=== PATIENT | female | born 1970 | race Caucasian/White ===

== ENCOUNTER 2017-01-30 01:45 | Emergency (ER) | payer MEDICAID, OTHER ==
[2017-01-30 01:54] VITALS: O2SAT 98; BMI 24.4
--- NOTE | 2017-01-30 03:07 | ED PDOC ---
Arrival/HPI - General Chief Complaint: Abdominal Pain Time Seen by Provider: 01/30/17 01:54 Historian: Patient - History of Present Illness Narrative History of Present Illness (Text): 01/30/17 03:02 Gladys Rolon is a 46 year old female, with a history of anemia,esophageal stricture, uterine fibroids, presents to the emergency department for evaluation of 3 day duration of intermittent abdominal discomfort.Pt. states she normally blends her food and is careful what she eats.No symptoms presently.Pt.states she has chronic hx. of similar symptoms previuosly evaluated and given GI referral.States needs fish drier who accepts her insurance.Denies any fever, chills, headache, dizziness, chest pain, nausea, vomiting, diarrhea, urinary symptoms, or any other complaints at this time. Time/Duration: < week (3 days ) Symptom Course: Improving Severity Level: Mild Activities at Onset: Light Past Medical History - Provider Review Nursing Documentation Reviewed: Yes - Past History Past History: No Previous - Infectious Disease Hx of Infectious Diseases: None - Tetanus Immunization Tetanus Immunization: Unknown - Cardiac Hx Cardiac Disorders: No - Pulmonary Hx Asthma: Yes Hx Bronchitis: No - Neurological Hx Neurological Disorder: No - HEENT Hx HEENT Disorder: No - Renal Hx Renal Disorder: No - Endocrine/Metabolic Hx Endocrine Disorders: No - Hematological/Oncological Hx Anemia: Yes - Integumentary Hx Dermatological Disorder: No - Musculoskeletal/Rheumatological Hx Musculoskeletal Disorders: No Hx Falls: No - Gastrointestinal Hx Gastrointestinal Disorders: Yes (ESOPHAGEAL STRICTURE-WITH DILATATION UMDN[place]) Hx Gastroesophageal Reflux: Yes - Genitourinary/Gynecological Hx Genitourinary Disorders: Yes (fibroids,C SECTION X 3) - Psychiatric Hx Depression: No Hx Substance Use: No - Surgical History Hx Section: Yes (x3) - Anesthesia Hx Anesthesia: Yes Hx Anesthesia Reactions: No Hx Malignant Hyperthermia: No - Suicidal Assessment Feels Threatened In Home Enviroment: No Family/Social History - Physician Review Nursing Documentation Reviewed: Yes Family/Social History: No Known Family HX Smoking Status: Never Smoked Hx Alcohol Use: No Hx Substance Use: No Hx Substance Use Treatment: No Allergies/Home Meds Allergies/Adverse Reactions: Allergies No Known Allergies Allergy (Verified 01/26/15 23:10) Home Medications: Home Meds Medication Instructions Recorded Confirmed Albuterol 0.083% [Albuterol 0.083% 2.5 mg IH BID PRN 02/25/15 02/25/15 Inhal Jess (2.5 mg/3 ml) UD] Ascorbic Acid/Bioflavonoid 1 tab PO DAILY 02/25/15 02/25/15 [Vitamin C] Cyanocobalamin [Vitamin B12 1000 1,000 mcg PO DAILY 02/25/15 02/25/15 mcg Tab] Cyanocobalamin [Vitamin B12 1000 1,000 mcg IM Q30D 02/25/15 02/25/15 mcg/ml Inj] Fluticasone/Salmeterol [Advair Hfa 1 puff IN TID PRN 02/25/15 02/25/15 230/21] Pantoprazole Sodium [Protonix] 40 mg PO BID 02/25/15 02/25/15 Review of Systems - Physician Review All systems were reviewed & negative as marked: Yes - Review of Systems Constitutional: Normal. absent: Fatigue, Fevers ENT: Other (difficulty swallowing solids ) Respiratory: Normal. absent: SOB, Sputum Gastrointestinal: Abdominal Pain. absent: Diarrhea, Nausea, Vomiting Genitourinary Female: Normal. absent: Dysuria Musculoskeletal: Normal Neurological: Normal. absent: Headache, Dizziness Psychiatric: Normal Physical Exam Vital Signs Reviewed: Yes Vital Signs Temp Pulse Resp BP Pulse Ox 01/30/17 05:30 97.9 F 82 18 128/80 98 01/30/17 01:52 98.0 F 89 16 134/87 98 Temperature: Afebrile Blood Pressure: Normal Pulse: Regular Respiratory Rate: Normal Appearance: Positive for: Well-Appearing, Non-Toxic, Comfortable Pain Distress: None Mental Status: Positive for: Alert and Oriented X 3 - Systems Exam Head: Present: Atraumatic, Normocephalic Pupils: Present: PERRL Extroacular Muscles: Present: EOMI Conjunctiva: Present: Normal Mouth: Present: Moist Mucous Membranes Neck: Present: Normal Range of Motion Respiratory/Chest: Present: Clear to Auscultation, Good Air Exchange. No: Respiratory Distress, Accessory Muscle Use Cardiovascular: Present: Regular Rate and Rhythm, Normal S1, S2. No: Murmurs Abdomen: Present: Normal Bowel Sounds. No: Tenderness, Distention, Peritoneal Signs Upper Extremity: Present: Normal Inspection. No: Cyanosis, Edema Lower Extremity: Present: Normal Inspection. No: Edema Neurological: Present: GCS=15, CN II-XII Intact, Speech Normal, Motor Func Grossly Intact, Normal Sensory Function Skin: Present: Warm, Dry, Normal Color. No: Rashes Psychiatric: Present: Alert, Oriented x 3, Normal Insight, Normal Concentration Medical Decision Making ED Course and Treatment: 01/30/17 03:09 Impression: A 46 year old female who presents to the emergency department complaining of 3 day duration of occassional abdominal discomfort. Plan: -- Labs -- Pepcid -- IV Fluids -- Reassess and disposition Progress Notes: - Lab Interpretations Lab Results: 01/30/17 03:15 01/30/17 04:00 Lab Results 01/30/17 04:00: Sodium 139, Potassium 3.8, Chloride 106, Carbon Dioxide 26, Anion Gap 11, BUN 7, Creatinine 0.7, Est GFR ( Amer) > 60, Est GFR (Non- Af Amer) > 60, Random Glucose 81, Calcium 9.1, Total Bilirubin 0.4, AST 25, ALT 27, Alkaline Phosphatase 67, Total Protein 7.5, Albumin 3.8, Globulin 3.7, Albumin/Globulin Ratio 1.0 L, Lipase 149 01/30/17 03:15: WBC 8.1, RBC 4.68, Hgb 13.6, Hct 40.7, MCV 87.0, MCH 29.1, MCHC 33.4, RDW 13.8, Plt Count 272, MPV 9.7 - Medication Orders Current Medication Orders: Discontinued Medications Famotidine (Pepcid) 20 mg IVP STAT STA Stop: 01/30/17 02:57 Last Admin: 01/30/17 03:19 Dose: 20 mg Sodium Chloride (Sodium Chloride 0.9%) 1,000 mls @ 100 mls/hr IV .Q10H [facility] Last Admin: 01/30/17 05:57 Dose: 100 mls/hr - Scribe Statement The provider has reviewed the documentation as recorded by the Germán Bacon Provider Scribe Attestation: All medical record entries made by the Scribe were at my direction and personally dictated by me. I have reviewed the chart and agree that the record accurately reflects my personal performance of the history, physical exam, medical decision making, and the department course for this patient. I have also personally directed, reviewed, and agree with the discharge instructions and disposition. Disposition/Present on Arrival - Present on Arrival Any Indicators Present on Arrival: No History of DVT/PE: No History of Uncontrolled Diabetes: No Urinary Catheter: No History of Decub. Ulcer: No History Surgical Site Infection Following: None - Disposition Have Diagnosis and Disposition been Completed?: Yes Diagnosis: Gastritis Disposition: HOME/ ROUTINE Disposition Time: 06:20 Patient Plan: Discharge Condition: STABLE Discharge Instructions (ExitCare): Gastritis (ED), Dysphagia (ED) Additional Instructions: Medication as prescribed/drink liquids/soft foodstuffs/follow up with the fish drier this week /any worsening symptoms return to the emergency room Prescriptions: Famotidine 20 mg PO BID #24 tablet Referrals: Rico Wilson MD [Medical Doctor] - Follow up with primary
[2017-01-30] MEDS: Sodium Chloride 0.9% 1,000 ML IV SCH ×2 (03:19→05:57)
[2017-01-30 03:49] LABS: HEMATOCRIT 40.7 % (36.0-48.0); MEAN CORPUSCULAR HEMOGLOBIN 29.1 pg (25.0-35.0); MEAN CORPUSCULAR HGB CONC 33.4 g/dl (31.0-37.0); MEAN PLATELET VOLUME 9.7 fl (7.0-11.0); RED CELL DISTRIBUTION WIDTH 13.8 % (11.5-14.5); WHITE BLOOD COUNT 8.1 10^3/ul (4.5-11.0)
[2017-01-30 05:20] LABS: ALKALINE PHOSPHATASE 67 U/L (38-133); ALT/SGPT 27 U/L (7-56); AST/SGOT 25 U/L (15-39); BILIRUBIN,TOTAL 0.4 mg/dL (0.2-1.3); BLOOD UREA NITROGEN 7 mg/dL (7-21); CALCIUM 9.1 mg/dL (8.4-10.5); CARBON DIOXIDE 26 mmol/L (21-33); CHLORIDE 106 mmol/L (98-107); GFR AFRICAN-AMERICAN > 60; GLUCOSE,RANDOM 81 mg/dL (70-110); LIPASE 149 U/L (23-300); POTASSIUM 3.8 mmol/L (3.6-5.0); SODIUM 139 mmol/L (132-148); TOTAL PROTEIN 7.5 g/dL (5.8-8.3)
[2017-01-30 06:03] VITALS: BP 128/80; PULSE 82; RESP 18; TEMP 97.9
== END 2017-01-30 06:34 | disposition home or self-care (01) ==
LOC: ED 01:45
DX: K29.70 Gastritis, unspecified, without bleeding (principal)
CPT/HCPCS: 80053; 83690; 85027; 96374; 99283; J7040

== ENCOUNTER 2017-02-05 02:42 | Emergency (ER) | payer MEDICAID ==
[2017-02-05 02:58] VITALS: BMI 18.1
--- NOTE | 2017-02-05 03:08 | ED PDOC ---
Arrival/HPI - General Time Seen by Provider: 02/05/17 02:54 Historian: Patient - History of Present Illness Narrative History of Present Illness (Text): 02/05/17 02:54 46 year old female, whose past medical history includes anemia, esophageal stricture, asthma, and uterine fibroids, who presents to the Emergency department with complaints of abdominal pain for last 10 days ago. Patient reports associated nausea, decreased appetite, shortness of breath, and acid reflux. Patient states she took Protonix at home, but denies any significant relief. The patient denies any chest pain, fever, vomiting, diarrhea, or any other complaints at this time. Time/Duration: > week (10 days ) Symptom Course: Unchanged Activities at Onset: Rest Context: Home Past Medical History - Provider Review Nursing Documentation Reviewed: Yes - Past History Past History: No Previous - Infectious Disease Hx of Infectious Diseases: None - Tetanus Immunization Tetanus Immunization: Unknown - Cardiac Hx Cardiac Disorders: No - Pulmonary Hx Asthma: Yes Hx Bronchitis: No - Neurological Hx Neurological Disorder: No - HEENT Hx HEENT Disorder: No - Renal Hx Renal Disorder: No - Endocrine/Metabolic Hx Endocrine Disorders: No - Hematological/Oncological Hx Anemia: Yes - Integumentary Hx Dermatological Disorder: No - Musculoskeletal/Rheumatological Hx Musculoskeletal Disorders: No Hx Falls: No - Gastrointestinal Hx Gastrointestinal Disorders: Yes (ESOPHAGEAL STRICTURE-WITH DILATATION UMDN[place]) Hx Gastroesophageal Reflux: Yes - Genitourinary/Gynecological Hx Genitourinary Disorders: Yes (fibroids,C SECTION X 3) - Psychiatric Hx Depression: No Hx Substance Use: No - Surgical History Hx Section: Yes (x3) - Anesthesia Hx Anesthesia: Yes Hx Anesthesia Reactions: No Hx Malignant Hyperthermia: No - Suicidal Assessment Feels Threatened In Home Enviroment: No Family/Social History - Physician Review Nursing Documentation Reviewed: Yes Family/Social History: Unknown Family HX Smoking Status: Never Smoked Hx Alcohol Use: No Hx Substance Use: No Hx Substance Use Treatment: No Allergies/Home Meds Allergies/Adverse Reactions: Allergies No Known Allergies Allergy (Verified 02/05/17 03:00) Home Medications: Home Meds Medication Instructions Recorded Confirmed Famotidine [Pepcid] 20 mg PO DAILY 02/05/17 02/05/17 Ibuprofen [Motrin] 600 mg PO Q6 PRN 02/05/17 02/05/17 Ranitidine HCl [Sunmark Acid 150 mg PO BID 02/05/17 02/05/17 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 absent: Fevers Respiratory: SOB. absent: Cough Cardiovascular: absent: Chest Pain Gastrointestinal: Abdominal Pain, Nausea, Appetite Changes. absent: Diarrhea, Vomiting Genitourinary Female: Normal. absent: Dysuria, Frequency, Hematuria, Urine Output Changes Musculoskeletal: Normal. absent: Back Pain, Neck Pain Neurological: Normal. absent: Headache, Dizziness Physical Exam Vital Signs Reviewed: Yes Vital Signs Temp Pulse Resp BP Pulse Ox 02/05/17 05:42 57 L 18 109/72 100 02/05/17 03:07 98.2 F 70 15 112/75 99 Temperature: Afebrile Blood Pressure: Normal Pulse: Regular Respiratory Rate: Normal Appearance: Positive for: Well-Appearing, Non-Toxic, Comfortable Pain Distress: None Mental Status: Positive for: Alert and Oriented X 3 - Systems Exam Head: Present: Atraumatic, Normocephalic Pupils: Present: PERRL Extroacular Muscles: Present: EOMI Conjunctiva: Present: Normal Mouth: Present: Moist Mucous Membranes Neck: Present: Normal Range of Motion Respiratory/Chest: Present: Clear to Auscultation, Good Air Exchange. No: Respiratory Distress, Accessory Muscle Use Cardiovascular: Present: Regular Rate and Rhythm, Normal S1, S2. No: Murmurs Abdomen: Present: Normal Bowel Sounds. No: Tenderness, Distention, Peritoneal Signs Back: Present: Normal Inspection Upper Extremity: Present: Normal Inspection. No: Cyanosis, Edema Lower Extremity: Present: Normal Inspection. No: Edema Neurological: Present: GCS=15, CN II-XII Intact, Speech Normal Skin: Present: Warm, Dry, Normal Color. No: Rashes Psychiatric: Present: Alert, Oriented x 3, Normal Insight, Normal Concentration Medical Decision Making ED Course and Treatment: 02/05/17 02:54 Impression: 46 year old woman with abdominal pain. Differential Diagnosis included but are not limited to: Plan: -- EKG -- Labs -- Protonix, IV fluids, Zofran -- UA -- Reassess and disposition Prior Visits: Notes and results from previous visits were reviewed. 01/30/17 patient presented to the Emergency department for abdominal pain, discharged home. Progress Notes: EKG: Ordered, reviewed, and independently interpreted the EKG. Rate : 56 BPM Rhythm : Sinus bradycardia Interpretation : No ST/T wave changes. Comparison : No acute changes from previous EKG for comparison 02/25/15. Re-evaluation Time: 06:38 Reassessment Condition: Re-examined, Improved - Lab Interpretations Lab Results: 02/05/17 03:20 02/05/17 03:20 Lab Results 02/05/17 03:20: Sodium 140, Potassium 3.5 L, Chloride 105, Carbon Dioxide 25, Anion Gap 14, BUN 11, Creatinine 0.9, Est GFR ( Amer) > 60, Est GFR (Non- Af Amer) > 60, Random Glucose 101, Calcium 9.7, Total Bilirubin 0.5, AST 25, ALT 20, Alkaline Phosphatase 63, Lactate Dehydrogenase 373, Total Creatine Kinase 56, Troponin I < 0.01, Total Protein 8.1, Albumin 4.3, Globulin 3.9, Albumin/Globulin Ratio 1.1, Amylase 124, Lipase 151 02/05/17 03:20: Urine Color Yellow, Urine Appearance Sl cloudy, Urine pH 6.0, Ur Specific [place] >= 1.030, Urine Protein 30 H, Urine Glucose (UA) Negative, Urine Ketones Trace H, Urine Blood Negative, Urine Nitrate Negative, Urine Bilirubin Negative, Urine Urobilinogen 1.0 H, Ur Leukocyte Esterase Negative, Urine RBC 0 - 2, Urine WBC 0 - 2, Ur Epithelial Cells 0 - 2 02/05/17 03:20: WBC 6.4 D, RBC 4.85, Hgb 14.1, Hct 41.6, MCV 85.8, MCH 29.1, MCHC 33.9, RDW 13.2, Plt Count 241, MPV 9.7, Gran % 59.0, Lymph % (Auto) 31.2, [place] % (Auto) 6.8 H, Eos % (Auto) 2.7, Baso % (Auto) 0.3, Gran # 3.76, Lymph # 2.0, [place] # 0.4, Eos # 0.2, Baso # 0.02 I have reviewed the lab results: Yes - EKG Interpretation Interpreted by ED Physician: Yes Type: 12 lead EKG - Medication Orders Current Medication Orders: Sodium Chloride (Sodium Chloride 0.9%) 1,000 mls @ 100 mls/hr IV .Q10H STA Stop: 02/05/17 13:08 Last Admin: 02/05/17 03:31 Dose: 100 mls/hr Discontinued Medications Ondansetron HCl (Zofran Inj) 4 mg IVP STAT STA Stop: 02/05/17 03:10 Last Admin: 02/05/17 03:31 Dose: 4 mg Pantoprazole Sodium (Protonix Inj) 40 mg IVP STAT STA Stop: 02/05/17 03:19 Last Admin: 02/05/17 03:31 Dose: 40 mg - Scribe Statement The provider has reviewed the documentation as recorded by the Germán Saenz training under Princess Guerra. Provider Scribe Attestation: All medical record entries made by the Scribe were at my direction and personally dictated by me. I have reviewed the chart and agree that the record accurately reflects my personal performance of the history, physical exam, medical decision making, and the department course for this patient. I have also personally directed, reviewed, and agree with the discharge instructions and disposition. Disposition/Present on Arrival - Present on Arrival Any Indicators Present on Arrival: No History of DVT/PE: No History of Uncontrolled Diabetes: No Urinary Catheter: No History Surgical Site Infection Following: None - Disposition Have Diagnosis and Disposition been Completed?: Yes Diagnosis: Gastroesophageal reflux disease Disposition: HOME/ ROUTINE Disposition Time: 06:38 Condition: GOOD Discharge Instructions (ExitCare): Gastroesophageal Reflux Disease (ED) Prescriptions: Pantoprazole Sodium [Protonix] 40 mg PO DAILY #14 ect
[2017-02-05 03:09] VITALS: TEMP 98.2
[2017-02-05] MEDS ORDERED: Pantoprazole 40 MG in Sodium Chloride 0.9% 100 ML IV STA (03:09)
[2017-02-05] MEDS ORDERED: Sodium Chloride 0.9% 1,000 ML IV STA (03:09)
[2017-02-05 03:31] LABS: ADD MANUAL DIFF? NO
[2017-02-05 03:40] LABS: BASO # 0.02 K/mm3 (0.0-2.0); BASO % 0.3 % (0.0-3.0); EOS # 0.2 (0.0-0.7); EOS % 2.7 % (1.5-5.0); GRAN # 3.76 (1.4-6.5); HEMATOCRIT 41.6 % (36.0-48.0); LYMPH % 31.2 % (22.0-35.0); MEAN CELL VOLUME 85.8 fL (80.0-105.0); MEAN CORPUSCULAR HEMOGLOBIN 29.1 pg (25.0-35.0); MEAN CORPUSCULAR HGB CONC 33.9 g/dl (31.0-37.0); MEAN PLATELET VOLUME 9.7 fl (7.0-11.0); MONO # 0.4 (0.1-0.6); MONO % 6.8 % (1.0-6.0); PLATELET COUNT 241 10^3/uL (120.0-450.0); RED CELL DISTRIBUTION WIDTH 13.2 % (11.5-14.5); WHITE BLOOD COUNT 6.4 10^3/ul (4.5-11.0)
[2017-02-05 03:44] LABS: URINE BILIRUBIN NEGATIVE (NEGATIVE); URINE BLOOD NEGATIVE (NEGATIVE); URINE GLUCOSE (UA) NEGATIVE (NEGATIVE); URINE KETONE TRACE mg/dL (NEGATIVE); URINE LEUKOCYTE ESTERASE NEGATIVE Leu/uL (NEGATIVE); URINE PROTEIN 30 mg/dL (<30 mg/dL)
[2017-02-05 03:53] LABS: URINE APPEARANCE SL CLOUDY (CLEAR); URINE COLOR YELLOW (YELLOW)
[2017-02-05 03:54] LABS: ALB/GLOB RATIO 1.1 (1.1-1.8); ALKALINE PHOSPHATASE 63 U/L (38-133); ALT/SGPT 20 U/L (7-56); AMYLASE 124 U/L (35-125); AST/SGOT 25 U/L (15-39); BILIRUBIN,TOTAL 0.5 mg/dL (0.2-1.3); BLOOD UREA NITROGEN 11 mg/dL (7-21); CALCIUM 9.7 mg/dL (8.4-10.5); CARBON DIOXIDE 25 mmol/L (21-33); CHLORIDE 105 mmol/L (98-107); GFR AFRICAN-AMERICAN > 60; GLUCOSE,RANDOM 101 mg/dL (70-110); LIPASE 151 U/L (23-300); POTASSIUM 3.5 mmol/L (3.6-5.0); SODIUM 140 mmol/L (132-148); TOTAL PROTEIN 8.1 g/dL (5.8-8.3)
[2017-02-05 04:19] LABS: TROPONIN I < 0.01 ng/mL
[2017-02-05 04:21] LABS: URINE EPITHELIAL CELLS 0 - 2 /hpf (0-5); URINE RBC 0 - 2 /hpf (0-2); URINE WBC 0 - 2 /hpf (0-6)
[2017-02-05 06:50] VITALS: BP 112/68; PULSE 62; RESP 19; O2SAT 99
--- NOTE | 2017-02-05 16:51 | CARD ---
APPROVED REPORT EKG Measurement Heart [id number] <Conclusion> Sinus bradycardia Otherwise normal ECG
== END 2017-02-05 06:49 | disposition home or self-care (01) ==
LOC: ED 02:42
DX: K21.9 Gastro-esophageal reflux disease without esophagitis (principal)
CPT/HCPCS: 80053; 81001; 82150; 82550; 83615; 83690; 84484; 85025; 93005; 96374; 96375; 99284; C9113; J2405; J7040

== ENCOUNTER 2017-03-05 20:31 | Emergency (ER) | payer MEDICAID ==
[2017-03-05 20:32] VITALS: BMI 18.1
[2017-03-05 21:04] VITALS: TEMP 98.2; O2SAT 100
[2017-03-05] MEDS ORDERED: Sucralfate 1 gm/10 ml Oral Susp UD PO STA (21:18)
--- NOTE | 2017-03-05 21:18 | ED PDOC ---
Arrival/HPI - General Chief Complaint: GI Problem Time Seen by Provider: 03/05/17 20:33 Historian: Patient - History of Present Illness Narrative History of Present Illness (Text): 03/05/17 21:16 Gladys Rolon is a 46 year old female, whose past medical history includes anemia, esophageal stricture, asthma and uterine fibroids, presents to the emergency department complaining of epigastric pain and mid-sternal chest pain. Also reports that symptoms are associated with mild shortness of breath. No relieving or exacerbating factors. Denies any fever, chills, headache, dizziness , nausea, vomiting, diarrhea, back pain, urinary symptoms, or any other complaints at this time. Symptom Onset: Gradual Symptom Course: Unchanged Severity Level: Mild Activities at Onset: Light Past Medical History - Provider Review Nursing Documentation Reviewed: Yes - Past History Past History: No Previous - Infectious Disease Hx of Infectious Diseases: None - Tetanus Immunization Tetanus Immunization: Unknown - Cardiac Hx Cardiac Disorders: No - Pulmonary Hx Asthma: Yes - Neurological Hx Neurological Disorder: No - HEENT Hx HEENT Disorder: No - Renal Hx Renal Disorder: No - Endocrine/Metabolic Hx Endocrine Disorders: No - Hematological/Oncological Hx Anemia: Yes - Integumentary Hx Dermatological Disorder: No - Musculoskeletal/Rheumatological Hx Musculoskeletal Disorders: No Hx Falls: No - Gastrointestinal Hx Gastrointestinal Disorders: Yes (ESOPHAGEAL STRICTURE-WITH DILATATION [place]MDN[place]) Hx Gastroesophageal Reflux: Yes - Genitourinary/Gynecological Hx Genitourinary Disorders: Yes (fibroids,C SECTION X 3) - Psychiatric Hx Depression: No Hx Substance Use: No - Surgical History Hx Section: Yes (x3) - Anesthesia Hx Anesthesia: Yes Hx Anesthesia Reactions: No Hx Malignant Hyperthermia: No - Suicidal Assessment Feels Threatened In Home Enviroment: No Family/Social History - Physician Review Nursing Documentation Reviewed: Yes Family/Social History: No Known Family HX Smoking Status: Never Smoked Hx Alcohol Use: No Hx Substance Use: No Hx Substance Use Treatment: No Allergies/Home Meds Allergies/Adverse Reactions: Allergies No Known Allergies Allergy (Verified 02/11/17 01:42) Home Medications: Home Meds Medication Instructions Recorded Confirmed Famotidine [Pepcid] 20 mg PO DAILY 02/05/17 03/08/17 Ibuprofen [Motrin] 600 mg PO Q6 PRN 02/05/17 03/08/17 Ranitidine HCl [Sunmark Acid 150 mg PO BID 02/05/17 03/08/17 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 absent: Fatigue, Fevers Respiratory: SOB. absent: Cough, Sputum Cardiovascular: Chest Pain (mid sternal ) Gastrointestinal: Abdominal Pain (epigastric ). absent: Diarrhea, Nausea, Vomiting Musculoskeletal: Normal Neurological: Normal. absent: Headache, Dizziness Psychiatric: Normal Physical Exam Vital Signs Reviewed: Yes Vital Signs Temp Pulse Resp BP Pulse Ox 03/05/17 23:15 92 H 16 121/69 100 03/05/17 21:03 98.2 F 90 18 128/83 100 Temperature: Afebrile Blood Pressure: Normal Pulse: Regular Respiratory Rate: Normal Appearance: Positive for: Well-Appearing, Non-Toxic, Comfortable Pain Distress: None Mental Status: Positive for: Alert and Oriented X 3 - Systems Exam Head: Present: Atraumatic, Normocephalic Pupils: Present: PERRL Conjunctiva: Present: Normal Mouth: Present: Moist Mucous Membranes Respiratory/Chest: Present: Clear to Auscultation, Good Air Exchange. No: Respiratory Distress, Accessory Muscle Use Cardiovascular: Present: Regular Rate and Rhythm, Normal S1, S2. No: Murmurs Abdomen: Present: Normal Bowel Sounds. No: Tenderness, Distention, Peritoneal Signs, Rebound, Guarding Upper Extremity: Present: Normal Inspection. No: Cyanosis, Edema Lower Extremity: Present: Normal Inspection. No: Edema Neurological: Present: GCS=15, CN II-XII Intact, Speech Normal, Motor Func Grossly Intact, Normal Sensory Function Skin: Present: Warm, Dry, Normal Color. No: Rashes Psychiatric: Present: Alert, Oriented x 3, Normal Insight, Normal Concentration Medical Decision Making ED Course and Treatment: 03/05/17 21:20 Impression: A 46 year old female who presents to the emergency department complaining of epigastric pain, mid-sternal chest pain and mild sob. Plan: -- Labs -- Carafate -- Protonix -- Zofran -- Urinalysis -- Reassess and disposition Progress Notes: 03/05/17 23:54 On reevaluation, patient states that symptoms have improved post treatment and is in no acute distress.I have discussed the results and plan with the patient, who expresses understanding. Patient in agreement with plan to be discharged home. Patient is stable for discharge. Patient was instructed to follow up with physician or return if symptoms worsen or new concerning symptoms arise. - Lab Interpretations Lab Results: 03/05/17 21:40 03/05/17 21:40 Lab Results 03/05/17 21:40: Sodium 139, Potassium 3.3 L, Chloride 102, Carbon Dioxide 21, Anion Gap 19, BUN 8, Creatinine 0.7, Est GFR ( Amer) > 60, Est GFR (Non- Af Amer) > 60, Random Glucose 89, Calcium 9.9, Total Bilirubin 1.0, AST 30, ALT 24, Alkaline Phosphatase 67, Total Protein 8.6 H, Albumin 4.5, Globulin 4.1, Albumin/Globulin Ratio 1.1, Lipase 161 03/05/17 21:40: PT 11.4, INR 1.06, APTT 26.1 03/05/17 21:40: WBC 7.2, RBC 4.83, Hgb 14.1, Hct 40.3, MCV 83.4, MCH 29.2, MCHC 35.0, RDW 12.7, Plt Count 244, MPV 9.3, Gran % 63.1, Lymph % (Auto) 27.6, [place] % (Auto) 7.5 H, Eos % (Auto) 1.7, Baso % (Auto) 0.1, Gran # 4.55, Lymph # 2.0, [place] # 0.5, Eos # 0.1, Baso # 0.01 - Medication Orders Current Medication Orders: Discontinued Medications Ondansetron HCl (Zofran Inj) 4 mg IVP STAT STA Stop: 03/05/17 21:18 Last Admin: 03/05/17 21:47 Dose: 4 mg Pantoprazole Sodium (Protonix Inj) 40 mg IVP ONCE STA Stop: 03/05/17 21:18 Last Admin: 03/05/17 21:47 Dose: 40 mg Sucralfate (Carafate Oral Susp) 1 gm PO STAT STA Stop: 03/05/17 21:19 Last Admin: 03/05/17 21:46 Dose: 1 gm Comments: not scanning - Scribe Statement The provider has reviewed the documentation as recorded by the Germán Bacon Provider Attestation: Provider Scribe Attestation: All medical record entries made by the Scribe were at my direction and personally dictated by me. I have reviewed the chart and agree that the record accurately reflects my personal performance of the history, physical exam, medical decision making, and the department course for this patient. I have also personally directed, reviewed, and agree with the discharge instructions and disposition. Disposition/Present on Arrival - Present on Arrival Any Indicators Present on Arrival: No History of DVT/PE: No History of Uncontrolled Diabetes: No Urinary Catheter: No History of Decub. Ulcer: No History Surgical Site Infection Following: None - Disposition Have Diagnosis and Disposition been Completed?: Yes Diagnosis: GERD (gastroesophageal reflux disease) Disposition: HOME/ ROUTINE Disposition Time: 23:55 Condition: GOOD Discharge Instructions (ExitCare): Gastroesophageal Reflux Disease (ED) Prescriptions: Sucralfate [Carafate Oral Susp] 1 gm PO QID #200 ml Ondansetron [Zofran Odt] 8 mg PO TID PRN #10 odt PRN Reason: Nausea/Vomiting Referrals: Rohan Dinh MD [Primary Care Provider] - Follow up with primary
[2017-03-05 21:54] LABS: BASO # 0.01 K/mm3 (0.0-2.0); BASO % 0.1 % (0.0-3.0); EOS # 0.1 (0.0-0.7); EOS % 1.7 % (1.5-5.0); GRAN # 4.55 (1.4-6.5); GRAN % 63.1 % (50.0-68.0); HEMOGLOBIN 14.1 gm/dL (12.0-16.0); LYMPH % 27.6 % (22.0-35.0); MEAN CELL VOLUME 83.4 fL (80.0-105.0); MEAN CORPUSCULAR HEMOGLOBIN 29.2 pg (25.0-35.0); MEAN PLATELET VOLUME 9.3 fl (7.0-11.0); MONO # 0.5 (0.1-0.6); MONO % 7.5 % (1.0-6.0); PLATELET COUNT 244 10^3/uL (120.0-450.0); RBC 4.83 10^6/uL (3.5-6.1); RED CELL DISTRIBUTION WIDTH 12.7 % (11.5-14.5); WHITE BLOOD COUNT 7.2 10^3/ul (4.5-11.0)
[2017-03-05 22:07] LABS: INR 1.06 (0.93-1.08); PARTIAL THROMBOPLASTIN TIME 26.1 Seconds (23.7-30.8); PROTHROMBIN TIME 11.4 Seconds (9.9-11.8)
[2017-03-05 22:15] LABS: ALB/GLOB RATIO 1.1 (1.1-1.8); ALBUMIN 4.5 g/dL (3.0-4.8); ALT/SGPT 24 U/L (7-56); AST/SGOT 30 U/L (15-39); BLOOD UREA NITROGEN 8 mg/dL (7-21); CALCIUM 9.9 mg/dL (8.4-10.5); GFR AFRICAN-AMERICAN > 60; GFR NON-AFRICAN AMERICAN > 60; LIPASE 161 U/L (23-300)
[2017-03-05 23:16] VITALS: BP 121/69; PULSE 92; RESP 16
== END 2017-03-06 00:40 | disposition home or self-care (01) ==
LOC: ED 20:31
DX: K21.9 Gastro-esophageal reflux disease without esophagitis (principal)
CPT/HCPCS: 80053; 83690; 85025; 85610; 85730; 96374; 96375; 99284; C9113; J2405

== ENCOUNTER 2017-03-08 00:47 | Emergency (ER) | payer MEDICAID ==
[2017-03-08 00:48] VITALS: BMI 18.1
[2017-03-08 00:55] VITALS: BP 123/87; TEMP 98.1; O2SAT 100
[2017-03-08] MEDS ORDERED: Sucralfate 1 gm/10 ml Oral Susp UD PO STA (00:58)
[2017-03-08] MEDS ORDERED: Pantoprazole 40 mg EC Tab PO STA (00:59)
[2017-03-08] MEDS ORDERED: Alum-Mag Hydrox-Simethicone Susp (30 mL) PO STA (00:59)
--- NOTE | 2017-03-08 01:23 | ED PDOC ---
Arrival/HPI <Jose Carlos Hall - Last Filed: 03/08/17 02:04> <Benitez Solomon - Last Filed: 03/08/17 03:25> - General Chief Complaint: GI Problem Time Seen by Provider: 03/08/17 00:56 - History of Present Illness Narrative History of Present Illness (Text): 03/08/17 01:21 Gladys Rolon is a 46 year old female, whose past medical history includes anemia, esophageal stricture, asthma and uterine fibroids, presents to the emergency department complaining of epigastric pain. No relieving or exacerbating factors. Denies any fever, chills, headache, dizziness, nausea, vomiting, diarrhea, back pain, urinary symptoms, or any other complaints at this time. (Benitez Solomon) Past Medical History - Provider Review Nursing Documentation Reviewed: Yes - Travel History Have you recently traveled outside [place] w/in the past 3 mons?: No - Past History Past History: No Previous - Infectious Disease Hx of Infectious Diseases: None - Tetanus Immunization Tetanus Immunization: Unknown - Cardiac Hx Cardiac Disorders: No - Pulmonary Hx Asthma: Yes - Neurological Hx Neurological Disorder: No - HEENT Hx HEENT Disorder: No - Renal Hx Renal Disorder: No - Endocrine/Metabolic Hx Endocrine Disorders: No - Hematological/Oncological Hx Anemia: Yes - Integumentary Hx Dermatological Disorder: No - Musculoskeletal/Rheumatological Hx Musculoskeletal Disorders: No Hx Falls: No - Gastrointestinal Hx Gastrointestinal Disorders: Yes (ESOPHAGEAL STRICTURE-WITH DILATATION UMDNJ) Hx Gastroesophageal Reflux: Yes - Genitourinary/Gynecological Hx Genitourinary Disorders: Yes (fibroids,C SECTION X 3) - Psychiatric Hx Depression: No Hx Substance Use: No - Surgical History Hx Section: Yes (x3) - Anesthesia Hx Anesthesia: Yes Hx Anesthesia Reactions: No Hx Malignant Hyperthermia: No - Suicidal Assessment Feels Threatened In Home Enviroment: No <Benitez Solomon - Last Filed: 03/08/17 03:25> Family/Social History - Physician Review Nursing Documentation Reviewed: Yes Family/Social History: Unknown Family HX Smoking Status: Never Smoked Hx Alcohol Use: No Hx Substance Use: No Hx Substance Use Treatment: No <Benitez Solomon - Last Filed: 03/08/17 03:25> Allergies/Home Meds <Jose Carlos Hall - Last Filed: 03/08/17 02:04> <Benitez Solomon - Last Filed: 03/08/17 03:25> Allergies/Adverse Reactions: Allergies No Known Allergies Allergy (Verified 02/11/17 01:42) Home Medications: Home Meds Medication Instructions Recorded Confirmed Famotidine [Pepcid] 20 mg PO DAILY 02/05/17 03/08/17 Ibuprofen [Motrin] 600 mg PO Q6 PRN 02/05/17 03/08/17 Ranitidine HCl [Sunmark Acid 150 mg PO BID 02/05/17 03/08/17 Interactive Media Marketing Specialist] Review of Systems - Review of Systems Constitutional: absent: Fatigue, Weight Change Eyes: absent: Vision Changes ENT: absent: Hearing Changes Respiratory: absent: SOB, Cough Cardiovascular: absent: Chest Pain Gastrointestinal: Abdominal Pain Genitourinary Female: absent: Dysuria Musculoskeletal: absent: Arthralgias, Back Pain Skin: absent: Rash, Pruritis Neurological: absent: Headache, Dizziness Endocrine: absent: Diaphoresis Hemo/Lymphatic: absent: Adenopathy Psychiatric: absent: Anxiety <Benitez Solomon - Last Filed: 03/08/17 03:25> Physical Exam Temperature: Afebrile Blood Pressure: Normal Pulse: Regular Respiratory Rate: Normal Appearance: Positive for: Non-Toxic Pain Distress: None Mental Status: Positive for: Alert and Oriented X 3 - Systems Exam Head: Present: Atraumatic Pupils: Present: PERRL Extroacular Muscles: Present: EOMI Respiratory/Chest: Present: Clear to Auscultation Cardiovascular: Present: Regular Rate and Rhythm. No: Murmurs Abdomen: Present: Normal Bowel Sounds. No: Tenderness, Distention, Peritoneal Signs Back: No: CVA Tenderness Upper Extremity: Present: Normal Inspection. No: Cyanosis, Edema Lower Extremity: Present: Normal Inspection. No: Edema Neurological: Present: GCS=15, CN II-XII Intact, Speech Normal <Benitez Solomon - Last Filed: 03/08/17 03:25> Vital Signs Temp Pulse Resp BP Pulse Ox 03/08/17 00:53 98.1 F 68 18 123/87 100 Medical Decision Making <Jose Carlos Hall - Last Filed: 03/08/17 02:04> <Benitez Solomon - Last Filed: 03/08/17 03:25> ED Course and Treatment: Impression: Pt seen and evaluated by medical staff physician. Pt, whose past medical history includes anemia, esophageal stricture, asthma and uterine fibroids, presented for epigastric pain. Aware and agree with HPI, clinical findings, plan, and management. Plan: -- Labs, lipase -- Urinalysis -- IV fluids -- Carafate -- Protonix -- Zofran -- Maalox - Reassess and disposition (Jose Carlos Hall) 03/08/17 01:25 CBC CMP UA Protonix and Carafate Reassess and dispo 03/08/17 01:58 Lipase 358 will give 1L NS 03/08/17 02:09 CBC WNL 03/08/17 02:41 urine is negative patient is comfortably sitting in bed no wretching no vomiting no abdominal pain 03/08/17 03:24 the patient states she feels better she is agreeable to go home the patient is stable for d/c as per dr. hall (Benitez Solomon) - Lab Interpretations Lab Results: 03/08/17 01:15 03/08/17 01:15 Lab Results 03/08/17 01:30: Urine Color Yellow, Urine Appearance Clear, Urine pH 6.0, Ur Specific [place] 1.010, Urine Protein Negative, Urine Glucose (UA) Negative, Urine Ketones Negative, Urine Blood Negative, Urine Nitrate Negative, Urine Bilirubin Negative, Urine Urobilinogen 0.2, Ur Leukocyte Esterase Negative 03/08/17 01:15: Sodium 141, Potassium 3.7, Chloride 104, Carbon Dioxide 25, Anion Gap 16, BUN 6 L, Creatinine 0.8, Est GFR ( Amer) > 60, Est GFR (Non -Af Amer) > 60, Random Glucose 90, Calcium 9.5, Total Bilirubin 0.4, AST 22, ALT 22, Alkaline Phosphatase 56, Total Protein 7.3, Albumin 3.8, Globulin 3.4, Albumin/Globulin Ratio 1.1, Lipase 358 H 03/08/17 01:15: WBC 7.2, RBC 4.41, Hgb 12.9, Hct 37.4, MCV 84.8, MCH 29.3, MCHC 34.5, RDW 12.8, Plt Count 231, MPV 9.4 - Medication Orders Current Medication Orders: Discontinued Medications Al Hydrox/Mg Hydrox/Simethicone (Maalox Plus 30 Ml) 30 ml PO STAT STA Stop: 03/08/17 01:00 Last Admin: 03/08/17 01:39 Dose: Not Given Non-Admin Reason: Patient Refused Sodium Chloride (Sodium Chloride 0.9%) 1,000 mls @ 999 mls/hr IV .Q1H1M STA Stop: 03/08/17 02:58 Last Admin: 03/08/17 02:05 Dose: 999 mls/hr Ondansetron HCl (Zofran Inj) 8 mg IVP STAT STA Stop: 03/08/17 01:38 Last Admin: 03/08/17 01:53 Dose: 8 mg Pantoprazole Sodium (Protonix Ec Tab) 40 mg PO STAT STA Stop: 03/08/17 01:00 Last Admin: 03/08/17 01:39 Dose: Not Given Non-Admin Reason: Patient Refused Pantoprazole Sodium (Protonix Inj) 40 mg IVP STAT STA Stop: 03/08/17 01:38 Last Admin: 03/08/17 01:52 Dose: 40 mg Sucralfate (Carafate Oral Susp) 1 gm PO STAT STA Stop: 03/08/17 00:59 Last Admin: 03/08/17 01:39 Dose: 1 gm - PA / TOP CLOSER / Resident Statement [facility] has reviewed & agrees with the documentation as recorded. [facility] has examined the patient and agrees with the treatment plan. <Jose Carlos Hall - Last Filed: 03/08/17 02:04> Disposition/Present on Arrival <Jose Carlos Hall - Last Filed: 03/08/17 02:04> - Present on Arrival Any Indicators Present on Arrival: No History of DVT/PE: No History of Uncontrolled Diabetes: No Urinary Catheter: No History of Decub. Ulcer: No History Surgical Site Infection Following: None - Disposition Have Diagnosis and Disposition been Completed?: Yes Disposition Time: 03:25 Patient Plan: Discharge <Benitez Solomon - Last Filed: 03/08/17 03:25> - Disposition Diagnosis: Abdominal pain Disposition: HOME/ ROUTINE Condition: FAIR Forms: [facility] ([place])
[2017-03-08 01:53] LABS: ALB/GLOB RATIO 1.1 (1.1-1.8); ALBUMIN 3.8 g/dL (3.0-4.8); ALT/SGPT 22 U/L (7-56); AST/SGOT 22 U/L (15-39); BLOOD UREA NITROGEN 6 mg/dL (7-21); CALCIUM 9.5 mg/dL (8.4-10.5); GFR AFRICAN-AMERICAN > 60; GFR NON-AFRICAN AMERICAN > 60; LIPASE 358 U/L (23-300)
[2017-03-08 01:54] LABS: HEMOGLOBIN 12.9 gm/dL (12.0-16.0); MEAN CELL VOLUME 84.8 fL (80.0-105.0); MEAN CORPUSCULAR HEMOGLOBIN 29.3 pg (25.0-35.0); MEAN CORPUSCULAR HGB CONC 34.5 g/dl (31.0-37.0); MEAN PLATELET VOLUME 9.4 fl (7.0-11.0); RBC 4.41 10^6/uL (3.5-6.1); RED CELL DISTRIBUTION WIDTH 12.8 % (11.5-14.5); WHITE BLOOD COUNT 7.2 10^3/ul (4.5-11.0)
[2017-03-08] MEDS ORDERED: Sodium Chloride 0.9% 1,000 ML IV STA (01:58)
[2017-03-08 02:08] LABS: URINE BILIRUBIN NEGATIVE (NEGATIVE); URINE BLOOD NEGATIVE (NEGATIVE); URINE GLUCOSE (UA) NEGATIVE (NEGATIVE); URINE LEUKOCYTE ESTERASE NEGATIVE Leu/uL (NEGATIVE); URINE NITRATE NEGATIVE (NEGATIVE); URINE PROTEIN NEGATIVE mg/dL (<30 mg/dL); URINE UROBILINOGEN 0.2 E.U./dL (<1 E.U./dL)
[2017-03-08 02:13] LABS: URINE APPEARANCE CLEAR (CLEAR); URINE COLOR YELLOW (YELLOW)
[2017-03-08 03:43] VITALS: PULSE 54; RESP 16
== END 2017-03-08 03:49 | disposition home or self-care (01) ==
LOC: ED 00:47
DX: R10.9 Unspecified abdominal pain (principal); D64.9 Anemia, unspecified; K22.2 Esophageal obstruction; D25.9 Leiomyoma of uterus, unspecified
CPT/HCPCS: 80053; 81003; 83690; 85027; 96361; 96374; 96375; 99284; C9113; J2405; J7040

== ENCOUNTER 2017-03-21 10:59 | Observation (INO) | payer MEDICAID ==
[2017-03-21 11:23] VITALS: BMI 18.6
--- NOTE | 2017-03-21 12:20 | ED PDOC ---
Arrival/HPI - General Chief Complaint: ENT Problem Time Seen by Provider: 03/21/17 11:11 Historian: Patient - History of Present Illness Narrative History of Present Illness (Text): 03/21/17 11:25 A 46 year old female whose past medical history includes an esophageal stricture , which was dilated several years ago, presents to the emergency department with 3 month duration trouble swallowing food and drink. However it has progressed significantly so that she is having trouble drinking liquids. This morning, she got to the point where she is unable to swallow water and feels like it is not going down. She was seen by Dr. Norwood yesterday outpatient for evaluation. The patient denies symptoms of headache, dizziness, fever, nausea, vomiting, diarrhea, abdominal pain, chest pain, lower extremity edema or any other complaint. PMD: Dr. Shelly Mendez Time/Duration: Other (3 moths) Symptom Onset: Sudden Symptom Course: Unchanged Context: Home Past Medical History - Provider Review Nursing Documentation Reviewed: Yes - Past History Past History: No Previous - Infectious Disease Hx of Infectious Diseases: None - Tetanus Immunization Tetanus Immunization: Unknown - Cardiac Hx Cardiac Disorders: No - Pulmonary Hx Respiratory Disorders: Yes Hx Asthma: Yes - Neurological Hx Neurological Disorder: No - HEENT Hx HEENT Disorder: No - Renal Hx Renal Disorder: No - Endocrine/Metabolic Hx Endocrine Disorders: No - Hematological/Oncological Hx Blood Disorders: Yes Hx Anemia: Yes Hx Blood Transfusions: Yes - Integumentary Hx Dermatological Disorder: No - Musculoskeletal/Rheumatological Hx Musculoskeletal Disorders: No Hx Falls: No - Gastrointestinal Hx Gastrointestinal Disorders: Yes (ESOPHAGEAL STRICTURE-WITH DILATATION UMDN[place]) Hx Gastroesophageal Reflux: Yes - Genitourinary/Gynecological Hx Genitourinary Disorders: Yes (fibroids,C SECTION X 3) - Psychiatric Hx Depression: No Hx Substance Use: No - Surgical History Hx Section: Yes (x3) - Anesthesia Hx Anesthesia: Yes Hx Anesthesia Reactions: No Hx Malignant Hyperthermia: No - Suicidal Assessment Feels Threatened In Home Enviroment: No Family/Social History - Physician Review Nursing Documentation Reviewed: Yes Family/Social History: No Known Family HX Smoking Status: Never Smoked Hx Alcohol Use: No Hx Substance Use: No Hx Substance Use Treatment: No Allergies/Home Meds Allergies/Adverse Reactions: Allergies No Known Allergies Allergy (Verified 03/21/17 11:23) Home Medications: Home Meds Medication Instructions Recorded Confirmed Famotidine [Pepcid] 20 mg PO DAILY 02/05/17 03/21/17 Ranitidine HCl [Sunmark Acid 150 mg PO BID 02/05/17 03/21/17 Master Lay Out Specialist] Review of Systems - Physician Review All systems were reviewed & negative as marked: Yes - Review of Systems Constitutional: absent: Fevers, Night Sweats ENT: Other (difficulty swallowing liquids and food.) Respiratory: absent: SOB Cardiovascular: absent: Chest Pain Gastrointestinal: absent: Abdominal Pain, Diarrhea, Nausea, Vomiting Genitourinary Female: Normal Musculoskeletal: Normal Skin: Normal Neurological: Normal Endocrine: Normal Hemo/Lymphatic: Normal Psychiatric: Normal Physical Exam Vital Signs Reviewed: Yes Vital Signs Temp Pulse Resp BP Pulse Ox 03/21/17 13:19 71 18 111/72 98 03/21/17 11:23 97.6 F 68 19 108/74 97 Temperature: Afebrile Blood Pressure: Normal Pulse: Regular Respiratory Rate: Normal Appearance: Positive for: Well-Appearing, Non-Toxic, Comfortable Pain Distress: None Mental Status: Positive for: Alert and Oriented X 3 - Systems Exam Head: Present: Atraumatic, Normocephalic Pupils: Present: PERRL Conjunctiva: Present: Normal Mouth: Present: Moist Mucous Membranes Pharnyx: Present: Normal. No: ERYTHEMA, EXUDATE Neck: Present: Normal Range of Motion Respiratory/Chest: Present: Clear to Auscultation, Good Air Exchange. No: Respiratory Distress, Accessory Muscle Use Cardiovascular: Present: Regular Rate and Rhythm, Normal S1, S2. No: Murmurs Abdomen: Present: Normal Bowel Sounds. No: Tenderness, Distention, Peritoneal Signs Back: Present: Normal Inspection Upper Extremity: Present: Normal Inspection. No: Cyanosis, Edema Lower Extremity: Present: Normal Inspection. No: Edema Neurological: Present: GCS=15, CN II-XII Intact, Speech Normal Skin: Present: Warm, Dry, Normal Color. No: Rashes Psychiatric: Present: Alert, Oriented x 3, Normal Insight, Normal Concentration Medical Decision Making ED Course and Treatment: 03/21/17 11:30 Impression: A 46 year old female with dysphagia and odynophagia and now unable to take in po - will not be able to discharge as she will need EGD to now be done much more urgently. Spoke with Dr. Norwood. Will observe her further in the hospital and have Dr. Norwood evaluate for EGD. Plan: -- Labs -- Protonix -- Urinalysis -- Reassess and disposition Progress Notes: 03/21/17 13:38 Labs are unremarkable but as discussed since unable to take in PO - will need further observation. Will start IVF and GI consult to be done. Dr. Mendez said to place on the hospitalist service. Discussed with Dr. Prakash, hospitalist for placement on the hospitalist service. - Lab Interpretations Lab Results: 03/21/17 12:10 03/21/17 12:10 Lab Results 03/21/17 12:10: Sodium 138, Potassium 4.3, Chloride 100, Carbon Dioxide 26, Anion Gap 16, BUN 9, Creatinine 0.8, Est GFR ( Amer) > 60, Est GFR (Non- Af Amer) > 60, Random Glucose 85, Calcium 9.5, Total Bilirubin 0.5, AST 20, ALT 22, Alkaline Phosphatase 51, Total Protein 7.6, Albumin 4.0, Globulin 3.6, Albumin/Globulin Ratio 1.1, Lipase 202 03/21/17 12:10: PT 11.8, INR 1.09 H, APTT 27.7 03/21/17 12:10: WBC 6.1, RBC 4.70, Hgb 13.6, Hct 40.5, MCV 86.2, MCH 28.9, MCHC 33.6, RDW 13.0, Plt Count 253, MPV 9.7, Gran % 67.9, Lymph % (Auto) 21.6 L, [place] % (Auto) 8.4 H, Eos % (Auto) 1.8, Baso % (Auto) 0.3, Gran # 4.14, Lymph # 1.3, [place] # 0.5, Eos # 0.1, Baso # 0.02 I have reviewed the lab results: Yes - Medication Orders Current Medication Orders: Sodium Chloride (Sodium Chloride 0.9%) 1,000 mls @ 100 mls/hr IV .Q10H STA Stop: 03/21/17 23:30 Last Admin: 03/21/17 13:34 Dose: 100 mls/hr Discontinued Medications Pantoprazole Sodium (Protonix Inj) 40 mg IVP ONCE STA Stop: 03/21/17 12:29 Last Admin: 03/21/17 13:34 Dose: 40 mg - Scribe Statement The provider has reviewed the documentation as recorded by the Germán Moya Provider Germán Attestation: All medical record entries made by the Germán were at my direction and personally dictated by me. I have reviewed the chart and agree that the record accurately reflects my personal performance of the history, physical exam, medical decision making, and the department course for this patient. I have also personally directed, reviewed, and agree with the discharge instructions and disposition. Disposition/Present on Arrival - Present on Arrival Any Indicators Present on Arrival: No History of DVT/PE: No History of Uncontrolled Diabetes: No Urinary Catheter: No History of Decub. Ulcer: No History Surgical Site Infection Following: None - Disposition Have Diagnosis and Disposition been Completed?: Yes Diagnosis: Swallowing impaired Disposition: HOSPITALIZED Disposition Time: 12:20 Patient Plan: Observation Condition: FAIR
[2017-03-21 12:26] LABS: BASO # 0.02 K/mm3 (0.0-2.0); BASO % 0.3 % (0.0-3.0); EOS # 0.1 (0.0-0.7); EOS % 1.8 % (1.5-5.0); GRAN # 4.14 (1.4-6.5); GRAN % 67.9 % (50.0-68.0); HEMOGLOBIN 13.6 g/dL (12.0-16.0); LYMPH # 1.3 (1.2-3.4); LYMPH % 21.6 % (22.0-35.0); MEAN CELL VOLUME 86.2 fl (80.0-105.0); MEAN CORPUSCULAR HEMOGLOBIN 28.9 pg (25.0-35.0); MEAN CORPUSCULAR HGB CONC 33.6 g/dl (31.0-37.0); MEAN PLATELET VOLUME 9.7 fl (7.0-11.0); MONO # 0.5 (0.1-0.6); MONO % 8.4 % (1.0-6.0); PLATELET COUNT 253 10^3/uL (120.0-450.0); WHITE BLOOD COUNT 6.1 10^3/ul (4.5-11.0)
[2017-03-21 12:36] LABS: ALB/GLOB RATIO 1.1 (1.1-1.8); ALT/SGPT 22 U/L (7-56); AST/SGOT 20 U/L (15-39); BLOOD UREA NITROGEN 9 mg/dL (7-21); CALCIUM 9.5 mg/dL (8.4-10.5); GFR AFRICAN-AMERICAN > 60; GFR NON-AFRICAN AMERICAN > 60; LIPASE 202 U/L (23-300)
[2017-03-21 12:37] LABS: INR 1.09 (0.93-1.08); PARTIAL THROMBOPLASTIN TIME 27.7 Seconds (23.7-30.8); PROTHROMBIN TIME 11.8 Seconds (9.9-11.8)
--- NOTE | 2017-03-21 13:28 | CP.PCM.CON ---
<Laquita Wilcox - Last Filed: 03/21/17 14:23> History of Present Illness - History of Present Illness History of Present Illness: Gastroenterology Fellow/PGY5 Consult Note 46 year old female with history of vitamin D deficiency, fibroids/menorrhagia s/ p hysterectomy, and esophageal stricture s/p dilation 2007 at [facility] presenting with difficulty swallowing. New patient evaluation in outpatient GI clinic with Dr. Norwood yesterday, 03/20/17. Patient notes 5 prior ER visits since december 2016 due to progressive difficulty swallowing liquids, solids, and pills with resultant globus sensation, chest pain, and epigastric pain. Symptoms are similar to 2008 leading to esophageal stricture dilation and are worsening over the last three months. Since December, initiated puree/liquefied diet and crushed pills in juice/apple sauce to prevent food being in throat and difficult swallowing. She notes symptoms are progressively worsening leading to small frequent four ounces measurements of liquefied meals throughout the day. Today, attempted to swallow puree/liquefied bananas leading to vomiting with food contents evacuating through her nose as well. Denies hematemesis, abdominal distension, bloating, abdominal pain, diarrhea, hematochezia, melena, or unintentional weight loss. Minimal relief with crushed PPI noting she is not able to tolerate small pieces of pill sediments due to being stuck in her throat. Bowel habit of formed stool once to twice a week with intermittent hard stools. Unintentional weight loss in the last 1-2 months. on record review, weight from 99-104 pounds from 2015 to present. Prior EGD 2007 endorsed to show esophageal stricture status post dilation. Family- denies esophageal cancer, stomach cancer, colon cancer Social- denies tobacco, alcohol, illicit drug use Surgery-esophageal dilation, hysterectomy, 3 C-sections Review of Systems - Review of Systems Review of Systems: 12-point review of systems negative except for as above Past Patient History - Infectious Disease Hx of Infectious Diseases: None - Tetanus Immunizations Tetanus Immunization: Unknown - Past Medical History & Family History Past Medical History?: Yes - Past Social History Smoking Status: Never Smoked - CARDIAC Hx Cardiac Disorders: No - PULMONARY Hx Respiratory Disorders: Yes Hx Asthma: Yes - NEUROLOGICAL Hx Neurological Disorder: No - HEENT Hx HEENT Problems: No - RENAL Hx Chronic Kidney Disease: No - ENDOCRINE/METABOLIC Hx Endocrine Disorders: No - HEMATOLOGICAL/ONCOLOGICAL Hx Blood Disorders: Yes Hx Anemia: Yes Hx Blood Transfusions: Yes - INTEGUMENTARY Hx Dermatological Problems: No - MUSCULOSKELETAL/RHEUMATOLOGICAL Hx Musculoskeletal Disorders: No Hx Falls: No - GASTROINTESTINAL Hx Gastrointestinal Disorders: Yes (ESOPHAGEAL STRICTURE-WITH DILATATION UMDN[place]) Hx Gastroesophageal Reflux: Yes - GENITOURINARY/GYNECOLOGICAL Hx Genitourinary Disorders: Yes (fibroids,C SECTION X 3) - PSYCHIATRIC Hx Depression: No Hx Substance Use: No - SURGICAL HISTORY Hx Section: Yes (x3) - ANESTHESIA Hx Anesthesia: Yes Hx Anesthesia Reactions: No Hx Malignant Hyperthermia: No Meds Allergies/Adverse Reactions: Allergies Allergy/AdvReac Type Severity Reaction Status Date / Time No Known Allergies Allergy Verified 03/21/17 18:39 Physical Exam - Constitutional Appears: Non-toxic, No Acute Distress, Chronically Ill - Head Exam Head Exam: ATRAUMATIC, NORMOCEPHALIC - Eye Exam Eye Exam: EOMI, PERRL Pupil Exam: PERRL. absent: Miosis, Mydriatic - ENT Exam ENT Exam: Mucous Membranes Moist, Normal Oropharynx - Neck Exam Neck exam: Positive for: Full Rom, Normal Inspection - Respiratory Exam Respiratory Exam: Clear to Auscultation Bilateral. absent: Rales, Rhonchi, Wheezes - Cardiovascular Exam Cardiovascular Exam: RRR, +S1, +S2. absent: Gallop, Rubs - GI/Abdominal Exam GI & Abdominal Exam: Normal Bowel Sounds, Soft. absent: Distended, Firm, Guarding, Organomegaly, Rigid, Tenderness - Extremities Exam Extremities exam: Positive for: full ROM. Negative for: pedal edema - Neurological Exam Neurological exam: Alert - Psychiatric Exam Psychiatric exam: Normal Affect, Normal Mood - Skin Skin Exam: Dry, Intact, Normal Color, Warm Results - Vital Signs Recent Vital Signs: Last Vital Signs Temp 97.6 F 03/21/17 11:23 Pulse 68 03/21/17 11:23 Resp 19 03/21/17 11:23 BP 108/74 03/21/17 11:23 Pulse Ox 97 03/21/17 11:23 - Labs Result Diagrams: 03/21/17 12:10 03/21/17 12:10 Assessment & Plan - Assessment and Plan (Free Text) Assessment: 46 year old female with history of vitamin D deficiency, fibroids/menorrhagia s/ p hysterectomy, and esophageal stricture s/p dilation 2007 at [facility] presenting with difficulty swallowing. New patient evaluation in outpatient GI clinic with Dr. Norwood yesterday, 03/20/17. Active treatment of dysphagia and unintentional weight loss. Prior EGD 2007 endorsed to show esophageal stricture status post dilation. Plan: >DDx: esophageal stricture, mass, ring >NPO diet >EGD with fluoroscopy , 03/22/17 >supportive care: IVFs, PPI IV, anti-emetics >patient in agreeance with above plan >further recommendations after endoscopic evaluation <Vishnu Norwood - Last Filed: 03/22/17 09:04> Meds - Medications Medications: Current Medications Ondansetron HCl (Zofran Inj) 4 mg IVP Q6H PRN PRN Reason: Nausea/Vomiting Results - Vital Signs Recent Vital Signs: Last Vital Signs Temp 97.9 F 03/21/17 20:58 Pulse 58 L 03/21/17 20:58 Resp 16 03/21/17 20:58 BP 100/61 03/21/17 20:58 Pulse Ox 100 03/21/17 14:00 - Labs Result Diagrams: 03/21/17 12:10 03/21/17 12:10 Labs: Laboratory Results - last 24 hr 03/22/17 06:45 Urine Color Yellow Urine Appearance Clear Urine pH 6.0 Ur Specific [place] 1.020 Urine Protein Negative Urine Glucose (UA) Negative Urine Ketones Negative Urine Blood Negative Urine Nitrate Negative Urine Bilirubin Negative Urine Urobilinogen 0.2 Ur Leukocyte Esterase Negative Urine HCG, Qual Negative Attending/Attestation - Attestation I have personally seen and examined this patient.: Yes I have fully participated in the care of the patient.: Yes I have reviewed all pertinent clinical information: Yes Notes (Text): 03/22/17 09:03 46 year old female with h/o benign esophageal stricture s/p dilation in 2007 presenting with dysphagia and weight loss. 1. Esophageal stricture 2. Dysphagia 3. Weight loss Plan: -NPO -EGD with fluoro today / dilation
[2017-03-21] MEDS ORDERED: Sodium Chloride 0.9% 1,000 ML IV STA (13:31)
--- NOTE | 2017-03-21 18:39 | CP.PCM.HP ---
<Martin So - Last Filed: 03/21/17 20:23> History of Present Illness - History of Present Illness History of Present Illness: 46 year old female with a past medical history significant for [id number] stricture, reflux, anemia, and multiple vitamin deficiencies who presents to [facility] for a 3 to 4 month duration of dyphagia to both solids and liquids, globus pallidus sensation, and reflux causing greater than 10% weight loss, unintentionally. She reports that in 2007 she had similar symptoms and was found to have esophageal stricture that was treated at [facility] with balloon dilatation. She went to a GI clinic yesterday where she was evaluated and recommended to come to [facility] for possible upper endoscopy and possible balloon dilatation. 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 Family History: Father alive (hypertension), Mother has hypertension, DM, and dylipidemia. Social history: mother of three children, has good family support, does not drink, or smoke, denies illicit drug use. Present on Admission - Present on Admission Any Indicators Present on Admission: No Review of Systems - Constitutional Constitutional: Anorexia, Malaise, Weight Loss. absent: Fever - EENT Eyes: absent: Change in Vision, Diplopia, Loss of Vision Ears: absent: Decreased Hearing, Ear Discharge Nose/Mouth/Throat: Dysphagia, Halitosis, Hoarsness, Mouth Lesions - Cardiovascular Cardiovascular: absent: Chest Pain at Rest, Dyspnea on Exertion, Pain Radiating to Arm/Neck/Jaw, Palpitations - Respiratory Respiratory: absent: Dyspnea, Wheezing, Excessive Mucous Production - Gastrointestinal Gastrointestinal: Dysphagia, Odynophagia - Genitourinary Genitourinary: absent: Dysuria, Hematuria - Musculoskeletal Musculoskeletal: absent: Loss of Height, Myalgias, Neck Pain - Integumentary Integumentary: Striae. absent: Pruritus, Rash - Psychiatric Psychiatric: absent: Abnormal Sleep Pattern, Change in Libido, Irritability - Hematologic/Lymphatic Hematologic: absent: Easy Bleeding, Easy Bruising Past Patient History - Infectious Disease Hx of Infectious Diseases: None - Tetanus Immunizations Tetanus Immunization: Unknown - Past Medical History & Family History Past Medical History?: Yes - Past Social History Smoking Status: Never Smoked - CARDIAC Hx Cardiac Disorders: No - PULMONARY Hx Respiratory Disorders: Yes Hx Asthma: Yes - NEUROLOGICAL Hx Neurological Disorder: No - HEENT Hx HEENT Problems: No - RENAL Hx Chronic Kidney Disease: No - ENDOCRINE/METABOLIC Hx Endocrine Disorders: No - HEMATOLOGICAL/ONCOLOGICAL Hx Blood Disorders: Yes Hx Anemia: Yes Hx Blood Transfusions: Yes - INTEGUMENTARY Hx Dermatological Problems: No - MUSCULOSKELETAL/RHEUMATOLOGICAL Hx Musculoskeletal Disorders: No Hx Falls: No - GASTROINTESTINAL Hx Gastrointestinal Disorders: Yes (ESOPHAGEAL STRICTURE-WITH DILATATION UMDNJ) Hx Gastroesophageal Reflux: Yes - GENITOURINARY/GYNECOLOGICAL Hx Genitourinary Disorders: Yes (fibroids,C SECTION X 3) - PSYCHIATRIC Hx Depression: No Hx Substance Use: No - SURGICAL HISTORY Hx Section: Yes (x3) - ANESTHESIA Hx Anesthesia: Yes Hx Anesthesia Reactions: No Hx Malignant Hyperthermia: No Meds Allergies/Adverse Reactions: Allergies Allergy/AdvReac Type Severity Reaction Status Date / Time No Known Allergies Allergy Verified 03/21/17 18:39 Physical Exam - Constitutional Appears: Non-toxic, No Acute Distress, Cachectic - Head Exam Head Exam: ATRAUMATIC, NORMOCEPHALIC - Eye Exam Eye Exam: EOMI, Normal appearance. absent: Scleral icterus - ENT Exam ENT Exam: Mucous Membranes Dry Additional comments: teeth appear eroded, lips appear swollen - Neck Exam Neck exam: Positive for: Normal Inspection. Negative for: Tenderness, Thyromegaly - Respiratory Exam Respiratory Exam: Clear to Auscultation Bilateral, NORMAL BREATHING PATTERN. absent: Accessory Muscle Use - Cardiovascular Exam Cardiovascular Exam: RRR, +S1, +S2 - GI/Abdominal Exam GI & Abdominal Exam: Normal Bowel Sounds. absent: Guarding, Rebound Additional comments: hysterectomy scar noted - Rectal Exam Rectal Exam: Deferred - Extremities Exam Extremities exam: Positive for: pedal pulses present. Negative for: pedal edema - Back Exam Back exam: absent: CVA tenderness (L), CVA tenderness (R), muscle spasm - Neurological Exam Neurological exam: Alert, CN II-XII Intact, Oriented x3 - Psychiatric Exam Psychiatric exam: Normal Affect - Skin Skin Exam: Dry, Intact, Normal Color, Warm Results - Vital Signs Recent Vital Signs: Last Vital Signs Temp 97.9 F 03/21/17 14:00 Pulse 58 L 03/21/17 14:00 Resp 16 03/21/17 14:00 BP 100/61 03/21/17 14:00 Pulse Ox 100 03/21/17 14:00 - Labs Result Diagrams: 03/21/17 12:10 03/21/17 12:10 Assessment & Plan - Assessment and Plan (Free Text) Assessment: 1) Dysphagia 3-4 months most likely due to esophageal stricture NPO at midnight IVF NS 100 ml/hr Patient on liquid diet Dr. Norwood to perform upper endoscopy tomorrow AM 2) GI prophylaxis 40 mg IVP protonix 3) - Date & Time Date: 03/21/17 Time: 05:20 <Marlena Prakash MD - Last Filed: 03/22/17 15:25> Results - Vital Signs Recent Vital Signs: Last Vital Signs Temp 98.0 F 03/22/17 15:00 Pulse 113 H 03/22/17 15:00 Resp 16 03/22/17 15:00 BP 147/94 H 03/22/17 15:00 Pulse Ox 99 03/22/17 15:00 - Labs Result Diagrams: 03/21/17 12:10 03/21/17 12:10 Labs: Laboratory Results - last 24 hr 03/22/17 06:45 Urine Color Yellow Urine Appearance Clear Urine pH 6.0 Ur Specific [place] 1.020 Urine Protein Negative Urine Glucose (UA) Negative Urine Ketones Negative Urine Blood Negative Urine Nitrate Negative Urine Bilirubin Negative Urine Urobilinogen 0.2 Ur Leukocyte Esterase Negative Urine HCG, Qual Negative Attending/Attestation - Attestation I have personally seen and examined this patient.: Yes I have fully participated in the care of the patient.: Yes I have reviewed all pertinent clinical information: Yes Notes (Text): 03/22/17 15:19 Patient was seen and examined with director biomedical engineering. Agreed with resident assessment and plan. 46 year old female with a past medical history significant for eosophageal stricture, SP Dilatation 7 yrs back , GERD and anemia is admitted with progressively worsening dysphagia to solid, also gave history of weight lose.We will start patient on IV hydration, on clear liquid diet for now.We will keep Patient NPO after midnight for EGD tomorrow. GI evaluation is appreciated. , Management plan was discussed in detail with patient Education was provided.
[2017-03-21] MEDS ORDERED: Pneumococcal 23-Valent Vaccine IM ONE (21:20)
[2017-03-22 07:11] LABS: URINE BILIRUBIN NEGATIVE (NEGATIVE); URINE BLOOD NEGATIVE (NEGATIVE); URINE GLUCOSE (UA) NEGATIVE (NEGATIVE); URINE LEUKOCYTE ESTERASE NEGATIVE Leu/uL (NEGATIVE); URINE NITRATE NEGATIVE (NEGATIVE); URINE PROTEIN NEGATIVE mg/dL (<30 mg/dL); URINE UROBILINOGEN 0.2 E.U./dL (<1 E.U./dL)
[2017-03-22 07:13] LABS: URINE APPEARANCE CLEAR (CLEAR); URINE COLOR YELLOW (YELLOW)
[2017-03-22 07:17] LABS: HCG,QUALITATIVE URINE NEGATIVE (NEGATIVE)
[2017-03-22] MEDS ORDERED: Iohexol 240 (50 ml) ONE (13:03)
[2017-03-22] MEDS ORDERED: Succinylcholine 200 mg/10 ml Inj IV ONE (14:24)
[2017-03-22] MEDS ORDERED: Propofol 10 mg/ml Inj (20 ML) ONE (14:26)
[2017-03-22] MEDS ORDERED: Desflurane Inhalation Anesthetic Liq (240 ml) ONE (14:42)
[2017-03-22] MEDS ORDERED: Naloxone 0.4 mg/ml Inj (Adult) ONE (14:51)
[2017-03-22] MEDS ORDERED: Phenylephrine 10 mg/ml Inj ONE (14:52)
[2017-03-22] MEDS ORDERED: HYDROmorphone 1 mg/ml ISec IVP PRN (15:03)
[2017-03-22] MEDS ORDERED: Sodium Chloride 0.9% 1,000 ML IV SCH (15:15)
[2017-03-22] MEDS ORDERED: HYDROmorphone 1 mg/ml ISec ONE (15:37)
[2017-03-22] MEDS ORDERED: HYDROmorphone 1 mg/ml ISec IVP ONE (15:40)
--- NOTE | 2017-03-22 16:43 | CP.PCM.PN ---
<Martin So - Last Filed: 03/22/17 17:49> Subjective - Date & Time of Evaluation Date of Evaluation: 03/22/17 Time of Evaluation: 10:20 - Subjective Subjective: Martin So DO, PGY-1, Hospitalist Service Dr. Prakash Patient seen and examined at bedside. Patient reports no events overnight. Patient asks about how the procedure will go. Denies any vomiting, nausea, or diarrhea. Objective - Vital Signs/Intake and Output Vital Signs (last 24 hours): Temp Pulse Resp BP Pulse Ox 98.0 F 75 16 119/76 100 03/22/17 15:45 03/22/17 15:45 03/22/17 15:45 03/22/17 15:45 03/22/17 15:45 Intake and Output: 03/22/17 03/22/17 06:59 18:59 Intake Total 0 0 Output Total 400 Balance 0 -400 - Medications Medications: Current Medications Famotidine (Pepcid) 20 mg IVP DAILY [facility] Hydromorphone HCl (Dilaudid) 1 mg IVP Q15M PRN PRN Reason: Pain, moderate (4-7) Stop: 03/22/17 17:03 Sodium Chloride (Sodium Chloride 0.9%) 1,000 mls @ 75 mls/hr IV .[id number] [facility] Stop: 03/22/17 17:16 Ondansetron HCl (Zofran Inj) 4 mg IVP Q6H PRN PRN Reason: Nausea/Vomiting Sucralfate (Carafate Oral Susp) 1 gm PO 0600,1600 [facility] - Labs Labs: PT 11.8 Seconds (9.9-11.8) 03/21/17 12:10 INR 1.09 (0.93-1.08) H 03/21/17 12:10 APTT 27.7 Seconds (23.7-30.8) 03/21/17 12:10 - Constitutional Appears: Well, No Acute Distress - Head Exam Head Exam: ATRAUMATIC, NORMOCEPHALIC - Eye Exam Eye Exam: EOMI, Normal appearance - ENT Exam ENT Exam: Mucous Membranes Moist Additional comments: teeth enamel partially eroded. - Neck Exam Neck Exam: Normal Inspection. absent: Tenderness, Thyromegaly - Respiratory Exam Respiratory Exam: Clear to Ausculation Bilateral. absent: Rales, Rhonchi - Cardiovascular Exam Cardiovascular Exam: REGULAR RHYTHM, +S1, +S2 - GI/Abdominal Exam GI & Abdominal Exam: Soft, Normal Bowel Sounds. absent: Tenderness, Rebound Additional comments: uterine hysterectomy scar noted - Rectal Exam Rectal Exam: Deferred - Extremities Exam Extremities Exam: Normal Capillary Refill, Normal Inspection - Back Exam Back Exam: CVA tenderness (L), CVA tenderness (R) - Neurological Exam Neurological Exam: Alert, Awake, CN II-XII Intact, Oriented x3 - Psychiatric Exam Psychiatric exam: Normal Affect, Normal Mood Additional comments: excited/nervous about procedure - Skin Skin Exam: Dry, Intact, Normal Color, Warm Assessment and Plan - Assessment and Plan (Free Text) Assessment: 46 year old female with a history of esophageal stricture presenting with 3-4 months of progressrively worsening dysphagia, odynophagia, increased reflux symptoms and subsequent decreased PO intake and unintentional weight loss of 30 pounds. Plan: 1) Dysphagia secondary to beningn appearing esophageal stenosis - S/P dilation up to 10 mm - Full liquid diet - NS 75 ml/hr - Cepacol PO for sore throat - Zofran 2 mg q4h PRN for nausea - Famotidine 20 mg IVP -Will continue to monitor patient and treat any post-procedural discomfort. <Dwain RIOS,Marlena - Last Filed: 03/23/17 16:04> Objective - Vital Signs/Intake and Output Vital Signs (last 24 hours): Temp Pulse Resp BP Pulse Ox 98.2 F 53 L 20 121/59 L 100 03/23/17 07:58 03/23/17 07:58 03/23/17 07:58 03/23/17 07:58 03/23/17 07:58 Intake and Output: 03/23/17 03/23/17 06:59 18:59 Intake Total 540 600 Balance 540 600 - Labs Labs: 03/23/17 07:00 03/23/17 07:00 PT 11.8 Seconds (9.9-11.8) 03/21/17 12:10 INR 1.09 (0.93-1.08) H 03/21/17 12:10 APTT 27.7 Seconds (23.7-30.8) 03/21/17 12:10 Attending/Attestation - Attestation I have personally seen and examined this patient.: Yes I have fully participated in the care of the patient.: Yes I have reviewed all pertinent clinical information, including history, physical exam and plan: Yes Notes (Text): 03/23/17 16:04 Patient was seen and examined with emergency medical service coordinator. Agreed with resident assessment and plan. 46 year old female with a past medical history significant for eosophageal stricture, SP Dilatation 7 yrs back , GERD and anemia is admitted with progressively worsening dysphagia to solid,underwent EGD that showed esophageal stenosis, he is s/p EGD with dilation to 10 , will start on liquid diet, will need repeat EGF in 2 weeks. Management plan was discussed in detail with patient Education was provided.
[2017-03-22] MEDS ORDERED: Benzocaine/Menthol (Cepacol) Lozenge MT PRN (16:55)
[2017-03-22] MEDS: Sucralfate 1 gm/10 ml Oral Susp UD PO SCH (18:31)
[2017-03-23] MEDS: Sucralfate 1 gm/10 ml Oral Susp UD PO SCH (05:32)
[2017-03-23 07:30] LABS: MEAN CELL VOLUME 86.3 fl (80.0-105.0); MEAN CORPUSCULAR HEMOGLOBIN 29.1 pg (25.0-35.0); MEAN CORPUSCULAR HGB CONC 33.7 g/dl (31.0-37.0); MEAN PLATELET VOLUME 9.7 fl (7.0-11.0); RBC 4.81 10^6/uL (3.5-6.1); WHITE BLOOD COUNT 9.3 10^3/ul (4.5-11.0)
[2017-03-23 07:39] LABS: BLOOD UREA NITROGEN 10 mg/dL (7-21); GFR AFRICAN-AMERICAN > 60; GFR NON-AFRICAN AMERICAN > 60
[2017-03-23 07:59] VITALS: BP 121/59; PULSE 53; RESP 20; TEMP 98.2; O2SAT 100
--- NOTE | 2017-03-23 10:10 | CP.PCM.PN ---
Subjective - Date & Time of Evaluation Date of Evaluation: 03/23/17 Time of Evaluation: 10:05 - Subjective Subjective: Patient seen and examined, sitting in chair at bedside, appears comfortable. No acute events overnight. She denies abdominal pain, nausea, vomiting, fever/ chills. She is s/p EGD with dilation of proximal esophageal stricture yesterday , able to tolerate PO liquids without difficulty. 12 point review of systems performed, negative aside from mentioned above. Objective - Vital Signs/Intake and Output Vital Signs (last 24 hours): Temp Pulse Resp BP Pulse Ox 98.2 F 53 L 20 121/59 L 100 03/23/17 07:58 03/23/17 07:58 03/23/17 07:58 03/23/17 07:58 03/23/17 07:58 Intake and Output: 03/23/17 03/23/17 06:59 18:59 Intake Total 540 Balance 540 - Medications Medications: Current Medications Acetaminophen (Tylenol 325mg Tab) 650 mg PO Q6H PRN PRN Reason: Fever >100.4 F Last Admin: 03/23/17 05:32 Dose: 650 mg Benzocaine/Menthol (Cepacol Sore Throat) 1 alvin MT Q2H PRN PRN Reason: Sore Throat Last Admin: 03/22/17 17:24 Dose: 1 alvin Famotidine (Pepcid) 20 mg IVP DAILY [facility] Last Admin: 03/23/17 09:48 Dose: 20 mg Ondansetron HCl (Zofran Inj) 4 mg IVP Q6H PRN PRN Reason: Nausea/Vomiting Last Admin: 03/22/17 17:23 Dose: 4 mg Ondansetron HCl (Zofran Inj) 2 mg IVP Q4H PRN PRN Reason: Nausea/Vomiting Last Admin: 03/22/17 15:40 Dose: 2 mg Sucralfate (Carafate Oral Susp) 1 gm PO 0600,1600 [facility] Last Admin: 03/23/17 05:32 Dose: 1 gm - Labs Labs: 03/23/17 07:00 03/23/17 07:00 PT 11.8 Seconds (9.9-11.8) 03/21/17 12:10 INR 1.09 (0.93-1.08) H 03/21/17 12:10 APTT 27.7 Seconds (23.7-30.8) 03/21/17 12:10 - Constitutional Appears: Non-toxic, No Acute Distress - Head Exam Head Exam: NORMAL INSPECTION - Eye Exam Eye Exam: EOMI, Normal appearance - ENT Exam ENT Exam: Mucous Membranes Moist - Cardiovascular Exam Cardiovascular Exam: REGULAR RHYTHM, +S1, +S2 - GI/Abdominal Exam GI & Abdominal Exam: Soft, Normal Bowel Sounds Additional comments: non tender to palpation in four quadrants - Extremities Exam Extremities Exam: Full ROM, Normal Capillary Refill, Normal Inspection. absent : Joint Swelling, Pedal Edema - Skin Skin Exam: Dry, Intact, Normal Color, Warm Assessment and Plan - Assessment and Plan (Free Text) Assessment: Dysphagia History of esophageal stricture, s/p EGD with dilation to 10 mm yesterday without ability to traverse stricture segment with gastroscope Weight loss Plan: - Liquid diet as tolerated - Continue with carafate suspension - Suggest liquid PPI therapy on hospital discharge - Would not advance diet beyond liquids at this point given partially treated stricture with high degree of stenosis - Patient will need repeat EGD within 2 weeks for repeat dilation - From GI perspective ok to discharge home, she has outpatient appointment scheduled with Dr. Norwood on SundayMarch 27. Will sign off case, please reconsult as necessary, thank you.
--- NOTE | 2017-03-23 17:23 | CP.PCM.DIS ---
<Martin So - Last Filed: 03/23/17 17:33> Provider - Provider Date of Admission: 03/21/17 12:20 Attending physician: Marlena Prakash MD Primary care physician: Sruthi Mendez MD Consults: Dr. Aguilera/Darius Time Spent in preparation of Discharge (in minutes): 48 Hospital Course - Lab Results Lab Results: Most Recent Lab Values WBC 9.3 10^3/ul (4.5-11.0) D 03/23/17 07:00 RBC 4.81 10^6/uL (3.5-6.1) 03/23/17 07:00 Hgb 14.0 g/dL (12.0-16.0) 03/23/17 07:00 Hct 41.5 % (36.0-48.0) 03/23/17 07:00 MCV 86.3 fl (80.0-105.0) 03/23/17 07:00 MCH 29.1 pg (25.0-35.0) 03/23/17 07:00 MCHC 33.7 g/dl (31.0-37.0) 03/23/17 07:00 RDW 13.0 % (11.5-14.5) 03/23/17 07:00 Plt Count 232 10^3/uL (120.0-450.0) 03/23/17 07:00 MPV 9.7 fl (7.0-11.0) 03/23/17 07:00 Gran % 67.9 % (50.0-68.0) 03/21/17 12:10 Lymph % (Auto) 21.6 % (22.0-35.0) L 03/21/17 12:10 [place] % (Auto) 8.4 % (1.0-6.0) H 03/21/17 12:10 Eos % (Auto) 1.8 % (1.5-5.0) 03/21/17 12:10 Baso % (Auto) 0.3 % (0.0-3.0) 03/21/17 12:10 Gran # 4.14 (1.4-6.5) 03/21/17 12:10 Lymph # 1.3 (1.2-3.4) 03/21/17 12:10 [place] # 0.5 (0.1-0.6) 03/21/17 12:10 Eos # 0.1 (0.0-0.7) 03/21/17 12:10 Baso # 0.02 K/mm3 (0.0-2.0) 03/21/17 12:10 PT 11.8 Seconds (9.9-11.8) 03/21/17 12:10 INR 1.09 (0.93-1.08) H 03/21/17 12:10 APTT 27.7 Seconds (23.7-30.8) 03/21/17 12:10 Sodium 137 mmol/L (132-148) 03/23/17 07:00 Potassium 4.2 mmol/L (3.6-5.0) 03/23/17 07:00 Chloride 100 mmol/L (98-107) 03/23/17 07:00 Carbon Dioxide 24 mmol/L (21-33) 03/23/17 07:00 Anion Gap 17 (10-20) 03/23/17 07:00 BUN 10 mg/dL (7-21) 03/23/17 07:00 Creatinine 0.8 mg/dL (0.5-1.4) 03/23/17 07:00 Est GFR ( Amer) > 60 03/23/17 07:00 Est GFR (Non-Af Amer) > 60 03/23/17 07:00 Random Glucose 78 mg/dL (70-110) 03/23/17 07:00 Calcium 10.0 mg/dL (8.4-10.5) 03/23/17 07:00 Total Bilirubin 0.5 mg/dL (0.2-1.3) 03/21/17 12:10 AST 20 U/L (15-39) 03/21/17 12:10 ALT 22 U/L (7-56) 03/21/17 12:10 Alkaline Phosphatase 51 U/L (38-133) 03/21/17 12:10 Total Protein 7.6 g/dL (5.8-8.3) 03/21/17 12:10 Albumin 4.0 g/dL (3.0-4.8) 03/21/17 12:10 Globulin 3.6 gm/dL 03/21/17 12:10 Albumin/Globulin Ratio 1.1 (1.1-1.8) 03/21/17 12:10 Lipase 202 U/L (23-300) 03/21/17 12:10 Urine Color Yellow (YELLOW) 03/22/17 06:45 Urine Appearance Clear (CLEAR) 03/22/17 06:45 Urine pH 6.0 (4.7-8.0) 03/22/17 06:45 Ur Specific [place] 1.020 (1.005-1.035) 03/22/17 06:45 Urine Protein Negative mg/dL (<30 mg/dL) 03/22/17 06:45 Urine Glucose (UA) Negative mg/dL (NEGATIVE) 03/22/17 06:45 Urine Ketones Negative mg/dL (NEGATIVE) 03/22/17 06:45 Urine Blood Negative (NEGATIVE) 03/22/17 06:45 Urine Nitrate Negative (NEGATIVE) 03/22/17 06:45 Urine Bilirubin Negative (NEGATIVE) 03/22/17 06:45 Urine Urobilinogen 0.2 E.U./dL (<1 E.U./dL) 03/22/17 06:45 Ur Leukocyte Esterase Negative Ray/uL (NEGATIVE) 03/22/17 06:45 Urine HCG, Qual Negative (NEGATIVE) 03/22/17 06:45 - Hospital Course Hospital Course: 46 year old female with a past medical history of esophageal stricture , reflux, anemia, and multiple vitamin deficiencies who presented to [facility] for a 3 to 4 months of dysphagia to both solids and liquids, globus pallidus sensation , and reflux causing greater than 10% weight loss, unintentionally. She reports that in 2007 she had similar symptoms and was found to have esophageal stricture that was treated at [facility] with balloon dilatation. She was admitted overnight for observation and underwent and UE which revealed a benign- appearing area of esophageal stenosis 12 cm from the incisors. Baloon dilation of 10 mm was performed and the patient was started on a full liquid diet. She tolerated the procedure well and developed no complications thereafter. She was discharged home with oral suspension of Carafate, Protonix, and Cepacol drops. She was given recommendations to follow-up with Dr. Norwood's office (GI) and her PMD, Dr. Mendez. - Date & Time of H&P Date of H&P: 03/23/17 Time of H&P: 15:20 Discharge Exam - Head Exam Head Exam: ATRAUMATIC, NORMAL INSPECTION, NORMOCEPHALIC - Eye Exam Eye Exam: EOMI, Normal appearance, PERRL - ENT Exam ENT Exam: Mucous Membranes Moist, Normal Oropharynx - Neck Exam Neck exam: Normal Inspection - Respiratory Exam Respiratory Exam: Clear to PA & Lateral, NORMAL BREATHING PATTERN. absent: Accessory Muscle Use - Cardiovascular Exam Cardiovascular Exam: REGULAR RHYTHM, RRR - GI/Abdominal Exam GI & Abdominal Exam: Normal Bowel Sounds Additional comments: abdominal hysterectomy scar noted - Rectal Exam Rectal Exam: Deferred - Extremities Exam Extremities exam: normal capillary refill, normal inspection - Neurological Exam Neurological exam: Alert, CN II-XII Intact, Oriented x3 - Psychiatric Exam Psychiatric exam: Normal Affect, Normal Mood - Skin Skin Exam: Dry, Intact, Normal Color, Warm Discharge Plan - Discharge Medications Prescriptions: Benzocaine/Menthol [Cepacol Sore Throat] 1 alvin MT Q2H PRN #30 alvin PRN Reason: Sore Throat Pantoprazole [Protonix Susp] 40 mg PO DAILY #30 packet Sucralfate [Carafate] 1 gm PO DAILY #15 dose - Follow Up Plan Condition: FAIR Disposition: HOME/ ROUTINE Instructions: Chronic Dysphagia (DC) Additional Instructions: 1) Follow up appointment scheduled with Dr. Norwood on SundayMarch 27 2) Patient to stay on liquid diet, as tolerated 3) Patient will need repeat EGD within 2 weeks for repeat dilation 4) Patient to follow up with Dr. Mendez within 1 week. Referrals: Sruthi Mendez MD [Primary Care Provider] - <Dwain RIOS,Marlena - Last Filed: 03/24/17 10:38> Provider - Provider Date of Admission: 03/21/17 12:20 Attending physician: Marlena Prakash MD Primary care physician: Sruthi Mendez MD Hospital Course - Lab Results Lab Results: Most Recent Lab Values WBC 9.3 10^3/ul (4.5-11.0) D 03/23/17 07:00 RBC 4.81 10^6/uL (3.5-6.1) 03/23/17 07:00 Hgb 14.0 g/dL (12.0-16.0) 03/23/17 07:00 Hct 41.5 % (36.0-48.0) 03/23/17 07:00 MCV 86.3 fl (80.0-105.0) 03/23/17 07:00 MCH 29.1 pg (25.0-35.0) 03/23/17 07:00 MCHC 33.7 g/dl (31.0-37.0) 03/23/17 07:00 RDW 13.0 % (11.5-14.5) 03/23/17 07:00 Plt Count 232 10^3/uL (120.0-450.0) 03/23/17 07:00 MPV 9.7 fl (7.0-11.0) 03/23/17 07:00 Gran % 67.9 % (50.0-68.0) 03/21/17 12:10 Lymph % (Auto) 21.6 % (22.0-35.0) L 03/21/17 12:10 [place] % (Auto) 8.4 % (1.0-6.0) H 03/21/17 12:10 Eos % (Auto) 1.8 % (1.5-5.0) 03/21/17 12:10 Baso % (Auto) 0.3 % (0.0-3.0) 03/21/17 12:10 Gran # 4.14 (1.4-6.5) 03/21/17 12:10 Lymph # 1.3 (1.2-3.4) 03/21/17 12:10 [place] # 0.5 (0.1-0.6) 03/21/17 12:10 Eos # 0.1 (0.0-0.7) 03/21/17 12:10 Baso # 0.02 K/mm3 (0.0-2.0) 03/21/17 12:10 PT 11.8 Seconds (9.9-11.8) 03/21/17 12:10 INR 1.09 (0.93-1.08) H 03/21/17 12:10 APTT 27.7 Seconds (23.7-30.8) 03/21/17 12:10 Sodium 137 mmol/L (132-148) 03/23/17 07:00 Potassium 4.2 mmol/L (3.6-5.0) 03/23/17 07:00 Chloride 100 mmol/L (98-107) 03/23/17 07:00 Carbon Dioxide 24 mmol/L (21-33) 03/23/17 07:00 Anion Gap 17 (10-20) 03/23/17 07:00 BUN 10 mg/dL (7-21) 03/23/17 07:00 Creatinine 0.8 mg/dL (0.5-1.4) 03/23/17 07:00 Est GFR ( Amer) > 60 03/23/17 07:00 Est GFR (Non-Af Amer) > 60 03/23/17 07:00 Random Glucose 78 mg/dL (70-110) 03/23/17 07:00 Calcium 10.0 mg/dL (8.4-10.5) 03/23/17 07:00 Total Bilirubin 0.5 mg/dL (0.2-1.3) 03/21/17 12:10 AST 20 U/L (15-39) 03/21/17 12:10 ALT 22 U/L (7-56) 03/21/17 12:10 Alkaline Phosphatase 51 U/L (38-133) 03/21/17 12:10 Total Protein 7.6 g/dL (5.8-8.3) 03/21/17 12:10 Albumin 4.0 g/dL (3.0-4.8) 03/21/17 12:10 Globulin 3.6 gm/dL 03/21/17 12:10 Albumin/Globulin Ratio 1.1 (1.1-1.8) 03/21/17 12:10 Lipase 202 U/L (23-300) 03/21/17 12:10 Urine Color Yellow (YELLOW) 03/22/17 06:45 Urine Appearance Clear (CLEAR) 03/22/17 06:45 Urine pH 6.0 (4.7-8.0) 03/22/17 06:45 Ur Specific [place] 1.020 (1.005-1.035) 03/22/17 06:45 Urine Protein Negative mg/dL (<30 mg/dL) 03/22/17 06:45 Urine Glucose (UA) Negative mg/dL (NEGATIVE) 03/22/17 06:45 Urine Ketones Negative mg/dL (NEGATIVE) 03/22/17 06:45 Urine Blood Negative (NEGATIVE) 03/22/17 06:45 Urine Nitrate Negative (NEGATIVE) 03/22/17 06:45 Urine Bilirubin Negative (NEGATIVE) 03/22/17 06:45 Urine Urobilinogen 0.2 E.U./dL (<1 E.U./dL) 03/22/17 06:45 Ur Leukocyte Esterase Negative Ray/uL (NEGATIVE) 03/22/17 06:45 Urine HCG, Qual Negative (NEGATIVE) 03/22/17 06:45 Attending/Attestation - Attestation I have personally seen and examined this patient.: Yes I have fully participated in the care of the patient.: Yes I have reviewed all pertinent clinical information, including history, physical exam and plan: Yes Notes (Text): 03/24/17 10:36 Patient was seen and examined with medical dosimetrist. Agreed with resident assessment and plan. 46 year old female with a past medical history significant for eosophageal stricture, SP Dilatation 7 yrs back , GERD and anemia was admitted with progressively worsening dysphagia to solid,underwent EGD that showed esophageal stenosis, she is s/p EGD with dilation to 10 , tolerating liquid diet, she will need repeat EGD in 2 weeks.She has been advised to stay on liquid diet at this time. Management plan was discussed in detail with patient Education was provided.
== END 2017-03-23 15:57 | disposition home or self-care (01) ==
LOC: ED 10:59 → ERH 12:20 → 5RSO 14:01
PROVIDERS: ADMIT Internal Medicine; ATTEND Internal Medicine
DX: K22.2 Esophageal obstruction (principal); K21.9 Gastro-esophageal reflux disease without esophagitis; E55.9 Vitamin D deficiency, unspecified; D64.9 Anemia, unspecified; R63.4 Abnormal weight loss; Z68.1 Body mass index [BMI] 19.9 or less, adult

== ENCOUNTER 2017-03-28 18:31 | Emergency (ER) | payer MEDICAID ==
[2017-03-28 18:31] VITALS: BMI 18.6
[2017-03-28 18:52] VITALS: RESP 16
--- NOTE | 2017-03-28 19:18 | ED PDOC ---
Arrival/HPI - General Chief Complaint: Chest Pain Time Seen by Provider: 03/28/17 19:00 Historian: Patient - History of Present Illness Narrative History of Present Illness (Text): 03/28/17 19:00 This 46 yo female with pmh esophageal stricture, presents to this ED c/o intermittent sensation of chest pressure x 1 1/2 days ago. Patient admits LU. Patient denies fever, cough, abdominal pain, dizziness, or abnormal gait. Time/Duration: Other (see hpi) Context: Home Past Medical History - Provider Review Nursing Documentation Reviewed: Yes - Past History Past History: No Previous - Infectious Disease Hx of Infectious Diseases: None - Tetanus Immunization Tetanus Immunization: Unknown - Cardiac Hx Cardiac Disorders: No - Pulmonary Hx Respiratory Disorders: Yes Hx Asthma: Yes - Neurological Hx Neurological Disorder: No - HEENT Hx HEENT Disorder: Yes (ESOPHAGEAL STRICTURE) - Renal Hx Renal Disorder: No - Endocrine/Metabolic Hx Endocrine Disorders: No - Hematological/Oncological Hx Blood Disorders: Yes Hx Blood Transfusions: Yes Hx Blood Transfusion Reaction: No - Integumentary Hx Dermatological Disorder: No - Musculoskeletal/Rheumatological Hx Musculoskeletal Disorders: Yes - Gastrointestinal Hx Gastrointestinal Disorders: Yes (ESOPHAGEAL STRICTURE-WITH DILATATION UMDN[place]) Hx Gastroesophageal Reflux: Yes Other/Comment: GASTRITIS - Genitourinary/Gynecological Hx Genitourinary Disorders: Yes (fibroids,C SECTION X 3,HYSTERECTOMY) - Psychiatric Hx Psychophysiologic Disorder: No Hx Emotional Abuse: No Hx Physical Abuse: No Hx Substance Use: No - Surgical History Hx Section: Yes - Anesthesia Hx Anesthesia Reactions: No Hx Malignant Hyperthermia: No - Suicidal Assessment Feels Threatened In Home Enviroment: No Family/Social History - Physician Review Nursing Documentation Reviewed: Yes Family/Social History: No Known Family HX Smoking Status: Never Smoked Hx Alcohol Use: No Hx Substance Use: No Hx Substance Use Treatment: No Allergies/Home Meds Allergies/Adverse Reactions: Allergies No Known Allergies Allergy (Verified 03/28/17 18:45) Home Medications: Home Meds Medication Instructions Recorded Confirmed Ondansetron [Zofran Tab] 8 mg PO PRN PRN 03/21/17 03/28/17 Cyclobenzaprine [Flexeril] 10 mg PO TID 03/28/17 03/28/17 Review of Systems - Review of Systems Constitutional: Normal. absent: Fatigue, Weight Change, Fevers Eyes: Normal ENT: Normal Respiratory: SOB. absent: Cough, Sputum, Wheezing Cardiovascular: Chest Pain, LU. absent: Palpitations, Edema, Calf Pain, Orthopnea, Syncope Gastrointestinal: Normal. absent: Abdominal Pain, Nausea, Vomiting Genitourinary Female: Normal. absent: Dysuria, Frequency, Hematuria Musculoskeletal: Normal Skin: Normal Neurological: Normal. absent: Headache, Dizziness, Focal Weakness, Gait Changes , Speech Changes, Facial Droop, Disequilibrium, Seizure Endocrine: Normal Hemo/Lymphatic: Normal Psychiatric: Normal Physical Exam Vital Signs Temp Pulse Resp BP Pulse Ox 03/28/17 22:31 97.9 F 76 16 108/76 99 03/28/17 18:49 98.2 F 72 16 106/66 100 Temperature: Afebrile Blood Pressure: Normal Pulse: Regular Respiratory Rate: Normal Appearance: Positive for: Well-Appearing, Non-Toxic, Comfortable Pain Distress: None Mental Status: Positive for: Alert and Oriented X 3 - Systems Exam Head: Present: Atraumatic, Normocephalic Pupils: Present: PERRL Extroacular Muscles: Present: EOMI Conjunctiva: Present: Normal Mouth: Present: Moist Mucous Membranes Neck: Present: Normal Range of Motion Respiratory/Chest: Present: Clear to Auscultation, Good Air Exchange. No: Respiratory Distress, Accessory Muscle Use Cardiovascular: Present: Regular Rate and Rhythm, Normal S1, S2. No: Murmurs Abdomen: Present: Normal Bowel Sounds. No: Tenderness, Distention, Peritoneal Signs Back: Present: Normal Inspection Upper Extremity: Present: Normal Inspection, Normal ROM, NORMAL PULSES, Neurovascularly Intact, Capillary Refill < 2s. No: Cyanosis, Edema Lower Extremity: Present: Normal Inspection, NORMAL PULSES, Normal ROM, Neurovascularly Intact, Capillary Refill < 2 s. No: Edema Neurological: Present: GCS=15, CN II-XII Intact, Speech Normal, Motor Func Grossly Intact, Normal Sensory Function, Normal Cerebellar Funct, Gait Normal Skin: Present: Warm, Dry, Normal Color. No: Rashes Psychiatric: Present: Alert, Oriented x 3, Normal Insight, Normal Concentration Medical Decision Making ED Course and Treatment: 03/29/17 00:11 Re-evaluation. Patient feels better. Discussed results and plan with patient who expresses understanding. All questions answered and there is agreement with the plan to discharge home with instructions. Patient stable for discharge. Return if symptoms persist or worsen Patient came c/o substernal chest pressure for over 36 hrs. Patient admits pmh esophageal stricture. Troponin was negative. CT chest w/contrast was ordered due to elevated Ddimer. ct scan was negative. Patient was recommended to f/u pmd in 1-2 days, and to return to emergency if symptoms worsen. Re-evaluation Time: 00:11 Reassessment Condition: Re-examined, Improved - Lab Interpretations Lab Results: 03/28/17 19:50 03/28/17 19:50 Lab Results 03/28/17 19:50: D-Dimer, Quantitative 0.60 H 03/28/17 19:50: Sodium 138, Chloride 103, Potassium 3.9, Carbon Dioxide 25, Anion Gap 14, BUN 10, Creatinine 0.8, Est GFR ( Amer) > 60, Est GFR (Non- Af Amer) > 60, Random Glucose 120 H, Calcium 9.7, Total Bilirubin 0.4, AST 24, ALT 15, Alkaline Phosphatase 53, Lactate Dehydrogenase 394, Total Creatine Kinase 57, Troponin I < 0.01, NT-Pro-B Natriuret Pep 24.4, Total Protein 7.5, Albumin 4.1, Globulin 3.4, Albumin/Globulin Ratio 1.2 03/28/17 19:50: pO2 66 H, VBG pH 7.41, VBG pCO2 41.0, VBG HCO3 26.0, VBG Total CO2 27.3, VBG O2 Sat (Calc) 95.9 H, VBG Base Excess 1.2, VBG Potassium 3.9, Sodium 140.0, Chloride 104.0, Glucose 124 H, Lactate 1.4, FiO2 21.0, Venous Blood Potassium 3.9 03/28/17 19:50: WBC 6.9 D, RBC 4.38, Hgb 12.7, Hct 37.6, MCV 85.8, MCH 29.0, MCHC 33.8, RDW 13.0, Plt Count 238, MPV 9.4, Gran % 60.4, Lymph % (Auto) 29.5, [place] % (Auto) 7.6 H, Eos % (Auto) 2.2, Baso % (Auto) 0.3, Gran # 4.15, Lymph # 2.0, [place] # 0.5, Eos # 0.2, Baso # 0.02 - RAD Interpretation Narrative RAD Interpretations (Text): 03/29/17 00:10 Patient Name: ARINA CAMPBELL Institution Name: [place] [address] Study Type: CTA CHEST Ordered As: CT ANGIO CHEST PE PROTOCOL FINDINGS: Limitations: Motion artifact - mild. Pulmonary arteries: No definite pulmonary embolism. Aorta: No aneurysm. No dissection. Lungs: No consolidation. Pleural space: No significant effusion. No pneumothorax. Heart: No cardiomegaly. No significant pericardial effusion. Bones/joints: Few small calcifications about LEFT shoulder. No acute fracture. Soft tissues: Unremarkable. Lymph nodes: No pathologically enlarged lymph nodes. Kidneys and ureters: Probable RIGHT renal cyst. IMPRESSION: 1. No definite CT evidence of pulmonary embolism. 2. Incidental/non-acute findings are described above. Thank you for allowing us to participate in the care of your patient. Dictated and Authenticated by: Tod Allen MD 03/28/2017 11:41 PM Eastern Time ([place] & [place]) Radiology Orders: 03/28/17 19:20 CHEST PORTABLE [RAD] Stat 03/28/17 21:15 ANGIO CHEST PE PROTOCOL [CT] Stat - EKG Interpretation Interpreted by ED Physician: Yes (NSR@69bpm. Normal interval) Type: 12 lead EKG Comparison: No previous EKG avail. - Medication Orders Current Medication Orders: Discontinued Medications Pantoprazole Sodium (Protonix 40mg Ivpb) 40 mg in 100 mls @ 200 mls/hr IVPB STAT STA Stop: 03/28/17 19:50 Last Admin: 03/28/17 19:50 Dose: 200 mls/hr Sodium Chloride (Sodium Chloride 0.9%) 500 mls @ 999 mls/hr IV .Q31M STA Stop: 03/28/17 19:51 Last Admin: 03/28/17 19:51 Dose: 999 mls/hr Iohexol (Omnipaque 350 100 Ml) Confirm Administered Dose 350 mg .ROUTE .STK-MED ONE Stop: 03/28/17 21:41 Disposition/Present on Arrival - Present on Arrival Any Indicators Present on Arrival: No History of DVT/PE: No History of Uncontrolled Diabetes: No Urinary Catheter: No History of Decub. Ulcer: No History Surgical Site Infection Following: None - Disposition Have Diagnosis and Disposition been Completed?: Yes Diagnosis: Non-cardiac chest pain Disposition: HOME/ ROUTINE Disposition Time: 00:12 Patient Plan: Discharge Condition: GOOD Discharge Instructions (ExitCare): Noncardiac Chest Pain (ED) Additional Instructions: Make sure to see your Pigment Mixer doctor tomorrow as scheduled by you. continue taking your medication as instructed by your doctor . Return to emergency if symptoms worsen. Referrals: Sruthi Mendez MD [Primary Care Provider] - Follow up with primary Forms: [employer] (Filipino)
[2017-03-28] MEDS ORDERED: Pantoprazole 40mg/100ml IVPB 40 MG/100 ML BAG IVPB STA (19:21)
[2017-03-28] MEDS ORDERED: Sodium Chloride 0.9% 500 ML IV STA (19:21)
[2017-03-28 20:00] LABS: BASO # 0.02 K/mm3 (0.0-2.0); BASO % 0.3 % (0.0-3.0); EOS # 0.2 (0.0-0.7); EOS % 2.2 % (1.5-5.0); GRAN # 4.15 (1.4-6.5); GRAN % 60.4 % (50.0-68.0); HEMOGLOBIN 12.7 g/dL (12.0-16.0); LYMPH % 29.5 % (22.0-35.0); MEAN CELL VOLUME 85.8 fl (80.0-105.0); MEAN CORPUSCULAR HGB CONC 33.8 g/dl (31.0-37.0); MEAN PLATELET VOLUME 9.4 fl (7.0-11.0); MONO # 0.5 (0.1-0.6); MONO % 7.6 % (1.0-6.0); PLATELET COUNT 238 10^3/uL (120.0-450.0); RBC 4.38 10^6/uL (3.5-6.1); VENOUS BLOOD GAS BASE EXCESS 1.2 mmol/L (0.0-2.0); VENOUS BLOOD GAS PO2 66 mm/Hg (30-55); VENOUS BLOOD PH 7.41 (7.32-7.43); WHITE BLOOD COUNT 6.9 10^3/ul (4.5-11.0)
[2017-03-28 20:08] LABS: ALB/GLOB RATIO 1.2 (1.1-1.8); ALBUMIN 4.1 g/dL (3.0-4.8); ALT/SGPT 15 U/L (7-56); AST/SGOT 24 U/L (15-39); BLOOD UREA NITROGEN 10 mg/dL (7-21); CALCIUM 9.7 mg/dL (8.4-10.5); GFR AFRICAN-AMERICAN > 60; GFR NON-AFRICAN AMERICAN > 60
[2017-03-28 20:20] LABS: B-TYPE NATRIURETIC PEPTIDE 24.4 pg/mL (0-450)
[2017-03-28 20:24] LABS: TROPONIN I < 0.01 ng/mL
[2017-03-28] MEDS ORDERED: Iohexol 350 MG/100 ML VIAL ONE (21:40)
--- NOTE | 2017-03-28 23:42 | CT ---
EXAM: CT Angiography Chest With Intravenous Contrast CLINICAL HISTORY: 46 years old, female; Signs and symptoms; Shortness of breath; Additional info: SOB TECHNIQUE: Axial computed tomographic angiography images of the chest with intravenous contrast using pulmonary embolism protocol. All CT scans at this facility use one or more dose reduction techniques, viz.: automated exposure control; ma/kV adjustment per patient size (including targeted exams where dose is matched to indication; i.e. head); or iterative reconstruction technique. MIP reconstructed images were created and reviewed. Coronal and sagittal reformatted images were created and reviewed. CONTRAST: 94 mL of omni 350 administered intravenously. COMPARISON: No relevant prior studies available. FINDINGS: Limitations: Motion artifact - mild. Pulmonary arteries: No definite pulmonary embolism. Aorta: No aneurysm. No dissection. Lungs: No consolidation. Pleural space: No significant effusion. No pneumothorax. Heart: No cardiomegaly. No significant pericardial effusion. Bones/joints: Few small calcifications about LEFT shoulder. No acute fracture. Soft tissues: Unremarkable. Lymph nodes: No pathologically enlarged lymph nodes. Kidneys and ureters: Probable RIGHT renal cyst. IMPRESSION: 1. No definite CT evidence of pulmonary embolism. 2. Incidental/non-acute findings are described above.
[2017-03-29 00:36] VITALS: BP 108/76; PULSE 76; TEMP 97.9; O2SAT 99
--- NOTE | 2017-03-29 07:33 | RAD ---
HISTORY: cp COMPARISON: No prior. FINDINGS: LUNGS: No active pulmonary disease. PLEURA: No significant pleural effusion identified, no pneumothorax apparent. CARDIOVASCULAR: Normal. OSSEOUS STRUCTURES: No significant abnormalities. VISUALIZED UPPER ABDOMEN: Normal. OTHER FINDINGS: None. IMPRESSION: No active disease.
--- NOTE | 2017-03-29 11:55 | CARD ---
APPROVED REPORT EKG Measurement Heart [id number] <Conclusion> Normal sinus rhythm with sinus arrhythmia Normal ECG
== END 2017-03-29 00:40 | disposition home or self-care (01) ==
LOC: ED 18:31
DX: R07.9 Chest pain, unspecified (principal)
CPT/HCPCS: 71010; 71275; 80053; 82550; 82803; 83615; 83880; 84484; 85025; 85378; 93005; 96365; 99284; C9113; J7040; Q9967

== ENCOUNTER 2017-04-11 01:23 | Emergency (ER) | payer MEDICAID ==
[2017-04-11 01:33] VITALS: BMI 17.9
[2017-04-11 01:36] VITALS: TEMP 97.6
--- NOTE | 2017-04-11 01:45 | ED PDOC ---
Arrival/HPI - General Historian: Patient - History of Present Illness Time/Duration: > month Symptom Onset: Gradual Symptom Course: Worsening Quality: Burning Severity Level: Moderate Activities at Onset: Rest Context: Home - General Chief Complaint: GI Problem Time Seen by Provider: 04/11/17 01:42 - History of Present Illness Narrative History of Present Illness (Text): 04/11/17 01:58 46yo F with PMHx including esophageal stricture, GERD here for evaluation of retrosternal chest pain. Patient states that she has been having similar symptoms for over 4 months. She was in [facility] 2 weeks ago and the GI team was unable to succesfully perform EGD due to esophageal strictures. Balloon dilation was performed on 03/22/17 and plan for repeat EGD with dilation if necessary in 2 weeks. Patient states that her follow up appointment with OLAYINKA Sandhu is Apr 26. She states that she went to see Dr. Milner yesterday due to the symptoms and was referred to a civil engineering director. Glass Installer Technician plan was to perform ECHO in a week. She states that her symptoms have been getting worse and she came into the ER for further evaluation. She reports nausea, dysphagia to semi-solids. She reports unintentional weight loss due to her symptoms. Chest pain described as burning. Denies any F/C. No recent illness. No SOB. Denies vomiting, or diarrhea. No Abd pain. No headaches. PMD: Dr. Shelly Milner GI: Dr. Norwood PMHx: Esophageal Stricture (10mm balloon dilation performed 03/22/17) PSHx: Hysterectomy, x3 Family Hx: Dad - HTN; Mom - HTN, DM, HLD Social Hx: Denies ETOH, Denies Tob. Denies illicit drugs. (Franck Watts) Past Medical History - Provider Review Nursing Documentation Reviewed: Yes - Past History Past History: No Previous - Infectious Disease Hx of Infectious Diseases: None - Tetanus Immunization Tetanus Immunization: Unknown - Reproductive Menopause: No - Cardiac Hx Cardiac Disorders: No - Pulmonary Hx Respiratory Disorders: Yes Hx Asthma: Yes - Neurological Hx Neurological Disorder: No - HEENT Hx HEENT Disorder: Yes (ESOPHAGEAL STRICTURE) - Renal Hx Renal Disorder: No - Endocrine/Metabolic Hx Endocrine Disorders: No - Hematological/Oncological Hx Blood Disorders: Yes Hx Blood Transfusions: Yes Hx Blood Transfusion Reaction: No - Integumentary Hx Dermatological Disorder: No - Musculoskeletal/Rheumatological Hx Musculoskeletal Disorders: Yes - Gastrointestinal Hx Gastrointestinal Disorders: Yes (ESOPHAGEAL STRICTURE-WITH DILATATION UMDN[place]) Hx Gastroesophageal Reflux: Yes Other/Comment: GASTRITIS - Genitourinary/Gynecological Hx Genitourinary Disorders: Yes (fibroids,C SECTION X 3,HYSTERECTOMY) - Psychiatric Hx Psychophysiologic Disorder: No Hx Emotional Abuse: No Hx Physical Abuse: No Hx Substance Use: No - Surgical History Hx Section: Yes - Anesthesia Hx Anesthesia Reactions: No Hx Malignant Hyperthermia: No - Suicidal Assessment Feels Threatened In Home Enviroment: No Family/Social History - Physician Review Nursing Documentation Reviewed: Yes Family/Social History: Diabetes, Hypertension Smoking Status: Never Smoked Hx Alcohol Use: No Hx Substance Use: No Hx Substance Use Treatment: No Allergies/Home Meds Allergies/Adverse Reactions: Allergies No Known Allergies Allergy (Verified 03/28/17 18:45) Home Medications: Home Meds Medication Instructions Recorded Confirmed Ondansetron [Zofran Tab] 8 mg PO PRN PRN 03/21/17 03/28/17 Cyclobenzaprine [Flexeril] 10 mg PO TID 03/28/17 03/28/17 Review of Systems - Physician Review All systems were reviewed & negative as marked: Yes - Review of Systems Constitutional: Weight Change. absent: Fevers Eyes: Normal ENT: Normal Respiratory: Normal. absent: SOB, Cough Cardiovascular: Chest Pain. absent: Edema, Calf Pain, LU Gastrointestinal: Nausea, Anorexia. absent: Abdominal Pain, Diarrhea, Vomiting , Hematochezia Genitourinary Female: absent: Dysuria, Frequency Musculoskeletal: absent: Arthralgias, Back Pain Skin: absent: Rash Neurological: absent: Headache, Dizziness Endocrine: absent: Diaphoresis Psychiatric: absent: Anxiety, Depression Physical Exam Vital Signs Reviewed: Yes Temperature: Afebrile Blood Pressure: Normal Pulse: Regular Respiratory Rate: Normal Appearance: Positive for: Non-Toxic, Comfortable, Cachectic Pain Distress: Mild Mental Status: Positive for: Alert and Oriented X 3 - Systems Exam Head: Present: Atraumatic, Normocephalic Extroacular Muscles: Present: EOMI Mouth: Present: Moist Mucous Membranes Neck: Present: Normal Range of Motion Respiratory/Chest: Present: Clear to Auscultation, Good Air Exchange. No: Respiratory Distress, Accessory Muscle Use, Wheezes, Decreased Breath Sounds Cardiovascular: Present: Regular Rate and Rhythm, Normal S1, S2. No: Murmurs Abdomen: No: Tenderness, Distention, Peritoneal Signs, Rebound, Guarding Upper Extremity: Present: Normal Inspection, Normal ROM, NORMAL PULSES. No: Cyanosis, Edema Lower Extremity: Present: Normal Inspection, NORMAL PULSES, Normal ROM. No: Edema, CALF TENDERNESS Neurological: Present: GCS=15 Skin: Present: Warm, Dry, Normal Color Psychiatric: Present: Alert, Oriented x 3 Vital Signs Temp Pulse Resp BP Pulse Ox 04/11/17 03:05 57 L 16 104/65 100 04/11/17 01:33 97.6 F 73 18 108/82 98 Medical Decision Making ED Course and Treatment: In agreement with resident note, which includes further HPI details. Patient was seen and evaluated with resident, came up with plan and treatment together. (Miguel Ángel Encinas) 04/11/17 02:17 46yo F with PMHx of Esophageal stricture here for burning type chest pain and nausea - Balloon dilation (10mm) on 03/[address] Norwood - CBC - CMP - EKG - Troponin - CXR - Zofran - IVF - Protonix - Carafate - reassess and dispo 04/11/17 03:16 Labs within normal limits CXR - no acute findings EKG - NSR @ 55. No apparent ST changes. Troponin negative On reevaluation, patient states that she has obtained mild relief. Discussed findings with patient. Patient is scheduled for EGD by Dr. Norwood on 03/26. She will follow up with Dr. Milner. She understands and agrees with plan. All questions and concerns addressed. Prescribed Protonix and Carafate. (Franck Watts) - Lab Interpretations Lab Results: 04/11/17 02:20 04/11/17 02:20 Lab Results 04/11/17 02:20: Sodium 140, Potassium 3.8, Chloride 103, Carbon Dioxide 28, Anion Gap 13, BUN 10, Creatinine 0.8, Est GFR ( Amer) > 60, Est GFR (Non- Af Amer) > 60, Random Glucose 89, Calcium 9.5, Total Bilirubin 0.3, AST 23, ALT 29, Alkaline Phosphatase 57, Lactate Dehydrogenase 353, Total Creatine Kinase 71 , Troponin I < 0.01, Total Protein 7.2, Albumin 3.8, Globulin 3.4, Albumin/ Globulin Ratio 1.1 04/11/17 02:20: WBC 7.2, RBC 4.55, Hgb 13.2, Hct 39.0, MCV 85.7, MCH 29.0, MCHC 33.8, RDW 13.1, Plt Count 271, MPV 9.3, Gran % 58.2, Lymph % (Auto) 30.7, [place] % (Auto) 7.6 H, Eos % (Auto) 3.2, Baso % (Auto) 0.3, Gran # 4.20, Lymph # 2.2, [place] # 0.6, Eos # 0.2, Baso # 0.02 - RAD Interpretation Radiology Orders: 04/11/17 01:56 CHEST PORTABLE [RAD] Stat - Medication Orders Current Medication Orders: Discontinued Medications Sodium Chloride (Sodium Chloride 0.9%) 1,000 mls @ 999 mls/hr IV .Q1H1M STA Stop: 04/11/17 02:56 Last Admin: 04/11/17 02:37 Dose: 999 mls/hr Ondansetron HCl (Zofran Inj) 4 mg IVP STAT STA Stop: 04/11/17 01:57 Last Admin: 04/11/17 02:38 Dose: 4 mg Pantoprazole Sodium (Protonix Inj) 40 mg IVP STAT STA Stop: 04/11/17 01:57 Last Admin: 04/11/17 02:38 Dose: 40 mg Sucralfate (Carafate Oral Susp) 1 gm PO STAT STA Stop: 04/11/17 02:07 Last Admin: 04/11/17 02:38 Dose: 1 gm - PA / CHLORINE CELLS OPERATOR / Resident Statement [facility] has reviewed & agrees with the documentation as recorded. / has examined the patient and agrees with the treatment plan. Disposition/Present on Arrival - Present on Arrival Any Indicators Present on Arrival: No History of DVT/PE: No History of Uncontrolled Diabetes: No Urinary Catheter: No History of Decub. Ulcer: No History Surgical Site Infection Following: None - Disposition Have Diagnosis and Disposition been Completed?: Yes Disposition Time: 03:19 Patient Plan: Discharge - Disposition Diagnosis: Esophageal stricture, GERD (gastroesophageal reflux disease) Disposition: HOME/ ROUTINE Condition: IMPROVED Discharge Instructions (ExitCare): Esophageal Stricture (ED), Gastroesophageal Reflux Disease (ED) Additional Instructions: 1. Follow up with your Primary Care physician within 3 days 2. Follow up with you GI doctor this week 3. Use Carafate and Protonix as prescribed as needed 4. Return to the ER with any concerning symptoms Prescriptions: Pantoprazole Sodium [Protonix] 40 mg PO DAILY #14 ect Sucralfate [Carafate Oral Susp UD] 1 gm PO BID PRN #400 ml PRN Reason: Dyspepsia Referrals: Vishnu Norwood MD [Staff Provider] - Follow up with primary Forms: [employer] (Latvian)
[2017-04-11] MEDS: Sodium Chloride 0.9% 1,000 ML IV STA (02:37)
[2017-04-11] MEDS: Sucralfate 1 gm/10 ml Oral Susp UD PO STA (02:38)
[2017-04-11 02:42] LABS: BASO # 0.02 K/mm3 (0.0-2.0); BASO % 0.3 % (0.0-3.0); EOS # 0.2 (0.0-0.7); EOS % 3.2 % (1.5-5.0); GRAN # 4.2 (1.4-6.5); GRAN % 58.2 % (50.0-68.0); LYMPH # 2.2 (1.2-3.4); LYMPH % 30.7 % (22.0-35.0); MEAN CELL VOLUME 85.7 fl (80.0-105.0); MEAN CORPUSCULAR HGB CONC 33.8 g/dl (31.0-37.0); MEAN PLATELET VOLUME 9.3 fl (7.0-11.0); MONO # 0.6 (0.1-0.6); MONO % 7.6 % (1.0-6.0); RED CELL DISTRIBUTION WIDTH 13.1 % (11.5-14.5); WHITE BLOOD COUNT 7.2 10^3/ul (4.5-11.0)
[2017-04-11 02:51] LABS: ALB/GLOB RATIO 1.1 (1.1-1.8); ALKALINE PHOSPHATASE 57 U/L (38-133); ALT/SGPT 29 U/L (7-56); AST/SGOT 23 U/L (15-39); BILIRUBIN,TOTAL 0.3 mg/dL (0.2-1.3); BLOOD UREA NITROGEN 10 mg/dL (7-21); CALCIUM 9.5 mg/dL (8.4-10.5); CARBON DIOXIDE 28 mmol/L (21-33); CHLORIDE 103 mmol/L (98-107); GFR AFRICAN-AMERICAN > 60; GLUCOSE,RANDOM 89 mg/dL (70-110); POTASSIUM 3.8 mmol/L (3.6-5.0); SODIUM 140 mmol/L (132-148); TOTAL PROTEIN 7.2 g/dL (5.8-8.3)
[2017-04-11 03:06] VITALS: BP 104/65; PULSE 57; RESP 16; O2SAT 100
[2017-04-11 03:09] LABS: TROPONIN I < 0.01 ng/mL
--- NOTE | 2017-04-11 08:45 | RAD ---
HISTORY: chest pain COMPARISON: Portable chest 03/28/2017 FINDINGS: LUNGS: No active pulmonary disease. PLEURA: No significant pleural effusion identified, no pneumothorax apparent. CARDIOVASCULAR: Normal. OSSEOUS STRUCTURES: No significant abnormalities. VISUALIZED UPPER ABDOMEN: Normal. OTHER FINDINGS: None. IMPRESSION: No acute cardiopulmonary disease or significant interval change identified.
--- NOTE | 2017-04-11 09:27 | CARD ---
APPROVED REPORT EKG Measurement Heart [id number] <Conclusion> Sinus bradycardia Otherwise normal ECG
== END 2017-04-11 04:00 | disposition home or self-care (01) ==
LOC: ED 01:23
DX: K22.2 Esophageal obstruction (principal); K21.9 Gastro-esophageal reflux disease without esophagitis
CPT/HCPCS: 71010; 80053; 82550; 83615; 84484; 85025; 93005; 96374; 96375; 99284; C9113; J2405; J7040

== ENCOUNTER 2017-04-20 09:42 | Emergency (ER) | payer MEDICAID ==
[2017-04-20 09:43] VITALS: BMI 17.9
[2017-04-20 09:59] VITALS: TEMP 98.2
--- NOTE | 2017-04-20 10:12 | ED PDOC ---
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 Patient stated her mother was just admitted to this hospital for stroke. She stated she can't hear bad news since this can cause her to be anxious. Patient denies SI, HI, sob, cp, or abnormal gait. (Brannon Bonilla) Past Medical History - Provider Review Nursing Documentation Reviewed: Yes - Past History Past History: No Previous - Infectious Disease Hx of Infectious Diseases: None - Tetanus Immunization Tetanus Immunization: Unknown - Reproductive Menopause: No - Cardiac Hx Cardiac Disorders: No - Pulmonary Hx Respiratory Disorders: Yes Hx Asthma: Yes - Neurological Hx Neurological Disorder: No - HEENT Hx HEENT Disorder: Yes (ESOPHAGEAL STRICTURE) - Renal Hx Renal Disorder: No - Endocrine/Metabolic Hx Endocrine Disorders: No - Hematological/Oncological Hx Blood Disorders: Yes Hx Blood Transfusions: Yes Hx Blood Transfusion Reaction: No - Integumentary Hx Dermatological Disorder: No - Musculoskeletal/Rheumatological Hx Musculoskeletal Disorders: Yes - Gastrointestinal Hx Gastrointestinal Disorders: Yes (ESOPHAGEAL STRICTURE-WITH DILATATION UMDNJ) Hx Gastroesophageal Reflux: Yes Other/Comment: GASTRITIS - Genitourinary/Gynecological Hx Genitourinary Disorders: Yes (fibroids,C SECTION X 3,HYSTERECTOMY) - Psychiatric Hx Psychophysiologic Disorder: No Hx Emotional Abuse: No Hx Physical Abuse: No Hx Substance Use: No - Surgical History Hx Section: Yes - Anesthesia Hx Anesthesia Reactions: No Hx Malignant Hyperthermia: No - Suicidal Assessment Feels Threatened In Home Enviroment: No Family/Social History - Physician Review Nursing Documentation Reviewed: Yes Family/Social History: Other (non-contributory) Smoking Status: Never Smoked Hx Alcohol Use: No Hx Substance Use: No Hx Substance Use Treatment: No Allergies/Home Meds Allergies/Adverse Reactions: Allergies No Known Allergies Allergy (Verified 04/20/17 09:52) Home Medications: Home Meds Medication Instructions Recorded Confirmed Ondansetron [Zofran Tab] 8 mg PO PRN PRN 03/21/17 04/20/17 Cyclobenzaprine [Flexeril] 10 mg PO TID 03/28/17 04/20/17 Review of Systems - Review of Systems Constitutional: Normal. absent: Fatigue, Weight Change, Fevers, Night Sweats Eyes: Normal ENT: Normal Respiratory: Normal. absent: SOB, Cough, Sputum Cardiovascular: Normal. absent: Chest Pain, Palpitations Gastrointestinal: Normal. absent: Abdominal Pain, Nausea, Vomiting Genitourinary Female: Normal Musculoskeletal: Normal Skin: Normal Neurological: Normal Endocrine: Normal Hemo/Lymphatic: Normal Psychiatric: Anxiety. absent: Depression, Suicidal Ideation Physical Exam Temperature: Afebrile Blood Pressure: Normal Pulse: Regular Respiratory Rate: Normal Appearance: Positive for: Well-Appearing, Non-Toxic, Comfortable Pain Distress: None Mental Status: Positive for: Alert and Oriented X 3 - Systems Exam Head: Present: Atraumatic, Normocephalic Pupils: Present: PERRL Extroacular Muscles: Present: EOMI Conjunctiva: Present: Normal Mouth: Present: Moist Mucous Membranes Neck: Present: Normal Range of Motion Respiratory/Chest: Present: Clear to Auscultation, Good Air Exchange. No: Respiratory Distress, Accessory Muscle Use Cardiovascular: Present: Regular Rate and Rhythm, Normal S1, S2. No: Murmurs Abdomen: Present: Normal Bowel Sounds. No: Tenderness, Distention, Peritoneal Signs Back: Present: Normal Inspection Upper Extremity: Present: Normal Inspection. No: Cyanosis, Edema Lower Extremity: Present: Normal Inspection. No: Edema Neurological: Present: GCS=15, CN II-XII Intact, Speech Normal, Motor Func Grossly Intact, Normal Sensory Function, Normal Cerebellar Funct, Gait Normal Skin: Present: Warm, Dry, Normal Color. No: Rashes Psychiatric: Present: Alert, Oriented x 3, Anxious. No: Depressed Mood, Suicidal Ideation, Homicidal Ideation, Delusional, Hallucinations, Intoxicated Medical Decision Making Re-evaluation Time: 10:50 Reassessment Condition: Re-examined, Improved - EKG Interpretation Interpreted by ED Physician: Yes (Sinus Tachycardia@ 108 bpm. Normal interval) Type: 12 lead EKG Comparison: No previous EKG avail. ED Course and Treatment: 04/20/17 10:49 Re-evaluation. Patient feels better. Discussed results and plan with patient who expresses understanding. All questions answered and there is agreement with the plan to discharge home with instructions. Patient stable for discharge. Return if symptoms persist or worsen. HR 84 bpm on playground monitor (T-VIPS,Brannon P) I was available for consultation during PA evaluation. The chart was reviewed by me, and I agree with disposition. The documented history was done by the physician library cataloging technician. The documented procedures were done by the physician library cataloging technician. (Garfield Jerez) - Medication Orders Current Medication Orders: Discontinued Medications Alprazolam (Xanax) 0.5 mg PO STAT STA PRN Reason: Protocol Stop: 04/20/17 10:09 Last Admin: 04/20/17 10:23 Dose: 0.5 mg Ondansetron HCl (Zofran Odt) 4 mg PO STAT STA Stop: 04/20/17 10:13 Last Admin: 04/20/17 10:23 Dose: 4 mg Disposition/Present on Arrival - Present on Arrival Any Indicators Present on Arrival: No History of DVT/PE: No History of Uncontrolled Diabetes: No Urinary Catheter: No History of Decub. Ulcer: No History Surgical Site Infection Following: None - Disposition Have Diagnosis and Disposition been Completed?: Yes Disposition Time: 10:50 Patient Plan: Discharge - Disposition Diagnosis: Anxiety reaction Disposition: HOME/ ROUTINE Condition: GOOD Discharge Instructions (ExitCare): Anxiety (ED) Additional Instructions: Call private doctor for follow up visit in 1-2 days. Take medication as instructed. Return to emergency if symptoms worsen. Prescriptions: ALPRAZolam [Xanax] 0.25 mg PO BID PRN #5 tab PRN Reason: Anxiety Referrals: Sruthi Mendez MD [Primary Care Provider] - Follow up with primary Forms: [employer] ([place])
[2017-04-20 11:08] VITALS: BP 145/80; PULSE 80; RESP 17; O2SAT 99
--- NOTE | 2017-04-20 20:53 | CARD ---
APPROVED REPORT EKG Measurement Heart [id number] <Conclusion> Sinus tachycardia Otherwise normal ECG
== END 2017-04-20 11:08 | disposition home or self-care (01) ==
LOC: ED 09:42
DX: F41.9 Anxiety disorder, unspecified (principal)

== ENCOUNTER 2017-04-26 12:35 | Day surgery (SDC) | payer MEDICAID ==
[2017-04-26 13:12] VITALS: BMI 17.9
[2017-04-26] MEDS ORDERED: Propofol 10 mg/ml Inj (20 ML) ONE (15:11)
[2017-04-26] MEDS ORDERED: Midazolam 2 MG/2 ML VIAL ONE (15:53)
[2017-04-26] MEDS ORDERED: Sodium Chloride 0.9% 1,000 ML IV SCH (16:00)
[2017-04-26 16:08] VITALS: TEMP 97.5
[2017-04-26 16:57] VITALS: BP 113/56; PULSE 90; RESP 20; O2SAT 96
== END 2017-04-26 18:30 | disposition home or self-care (01) ==
LOC: ENDO 12:35
PROVIDERS: ATTEND Internal Medicine
DX: K22.2 Esophageal obstruction (principal); K29.50 Unspecified chronic gastritis without bleeding; B96.81 Helicobacter pylori [H. pylori] as the cause of diseases classified elsewhere; D64.9 Anemia, unspecified; E55.9 Vitamin D deficiency, unspecified; Z98.51 Tubal ligation status; Z90.710 Acquired absence of both cervix and uterus; E07.9 Disorder of thyroid, unspecified
CPT/HCPCS: 43239; 43249; 88305; 88342; C1726; J2250; J2405; J2704; J3010; J7040 ×2

== ENCOUNTER 2017-05-09 14:41 | Emergency (ER) | payer MEDICAID ==
[2017-05-09 14:41] VITALS: BMI 19.2
--- NOTE | 2017-05-09 14:44 | ED PDOC ---
Arrival/HPI - General Time Seen by Provider: 05/09/17 14:43 Historian: Patient - History of Present Illness Narrative History of Present Illness (Text): 05/09/17 14:44 46 y/o female, pmh including gerd/uterine fibroid, psychiatric history including chronic anxiety as she is on xanax, nkda, c/o anxiety attack x 1 hour. Pt. stated that she is very stress out recently as her mother has a stroke, discharge from the hospital and going to the rehab facility with the mother, very concerning for her mother about that her mother wouldn't do well so she start panicking, doesn't have xanax with her so she call for the ambulance. Pt. has no chest pain or shortness of breath, no palpitation, no homicidal or suicidal ideation, no auditory or visual hallucination, stated that this feels like her usual anxiety/panic attack, no alcohol or drug abuse, no other medical or psychological complaints. Pt. refused psychiatric evaluation as well. Past Medical History - Provider Review Nursing Documentation Reviewed: Yes - Past History Past History: No Previous - Infectious Disease Hx of Infectious Diseases: None - Tetanus Immunization Tetanus Immunization: Unknown - Cardiac Hx Pacemaker: No - Pulmonary Hx Respiratory Disorders: Yes Hx Asthma: Yes - Neurological Hx Neurological Disorder: No - HEENT Hx HEENT Disorder: Yes (ESOPHAGEAL STRICTURE) - Renal Hx Renal Disorder: No - Endocrine/Metabolic Hx Endocrine Disorders: No - Hematological/Oncological Hx Blood Transfusions: Yes Hx Blood Transfusion Reaction: No - Integumentary Hx Dermatological Disorder: No - Musculoskeletal/Rheumatological Hx Musculoskeletal Disorders: No - Gastrointestinal Hx Gastrointestinal Disorders: Yes (ESOPHAGEAL STRICTURE-WITH DILATATION UMDNJ) Hx Gastroesophageal Reflux: Yes Other/Comment: GASTRITIS - Genitourinary/Gynecological Hx Genitourinary Disorders: Yes (fibroids,C SECTION X 3,HYSTERECTOMY) - Psychiatric Hx Emotional Abuse: No Hx Physical Abuse: No Hx Substance Use: No - Surgical History Hx Section: Yes - Anesthesia Hx Anesthesia Reactions: No Hx Malignant Hyperthermia: No - Suicidal Assessment Feels Threatened In Home Enviroment: No Family/Social History - Physician Review Nursing Documentation Reviewed: Yes Family/Social History: Unknown Family HX Smoking Status: Never Smoked Hx Alcohol Use: No Hx Substance Use: No Hx Substance Use Treatment: No Allergies/Home Meds Allergies/Adverse Reactions: Allergies No Known Allergies Allergy (Verified 05/09/17 14:52) Home Medications: Home Meds Medication Instructions Recorded Confirmed Omeprazole [Omeprazole] 20 mg PO BID 05/09/17 05/09/17 Review of Systems - Review of Systems Constitutional: absent: Fatigue, Fevers Eyes: absent: Vision Changes ENT: absent: Hearing Changes Respiratory: absent: SOB, Cough Cardiovascular: absent: Chest Pain, Palpitations Gastrointestinal: absent: Abdominal Pain, Diarrhea, Nausea, Vomiting Neurological: absent: Headache, Dizziness Physical Exam Vital Signs Reviewed: Yes Vital Signs Temp Pulse Resp BP Pulse Ox 05/09/17 15:56 94 H 18 124/81 100 05/09/17 14:50 97.7 F 114 H 19 146/55 L 100 Temperature: Afebrile Pulse: Tachycardic Respiratory Rate: Normal Appearance: Positive for: Well-Appearing, Non-Toxic, Comfortable Pain Distress: None Mental Status: Positive for: Alert and Oriented X 3 - Systems Exam Head: Present: Atraumatic, Normocephalic Pupils: Present: PERRL Extroacular Muscles: Present: EOMI Conjunctiva: Present: Normal Mouth: Present: Moist Mucous Membranes Pharnyx: Present: Other (no tongue fasciculations. ) Neck: Present: Normal Range of Motion Respiratory/Chest: Present: Clear to Auscultation, Good Air Exchange. No: Respiratory Distress, Accessory Muscle Use Cardiovascular: Present: Regular Rate and Rhythm, Normal S1, S2. No: Murmurs Abdomen: Present: Normal Bowel Sounds. No: Tenderness, Distention, Peritoneal Signs Back: Present: Normal Inspection Upper Extremity: Present: Normal Inspection. No: Cyanosis, Edema Lower Extremity: Present: Normal Inspection. No: Edema Neurological: Present: GCS=15, Speech Normal, Motor Func Grossly Intact, Gait Normal, Memory Normal Skin: Present: Warm, Dry, Normal Color. No: Rashes Psychiatric: Present: Alert, Oriented x 3, Anxious. No: Depressed Mood, Suicidal Ideation, Homicidal Ideation, Delusional, Hallucinations, Intoxicated Medical Decision Making ED Course and Treatment: 05/09/17 15:01 -xanax -observe and reassess 05/09/17 15:56 -Pt. had total hysterectomy and urine hcg negative. -Pt. feels well, non-anxious, wants to be discharged home. -Discharge home with education on stay hydrated, bed rest, follow up with your own pmd within 2 days, return to the ER for any new or worsening signs or symptoms. - Medication Orders Current Medication Orders: Discontinued Medications Alprazolam (Xanax) 0.5 mg PO STAT STA PRN Reason: Protocol Stop: 05/09/17 14:57 Last Admin: 05/09/17 15:32 Dose: 0.5 mg - PA / DISTILLERY WORKER GENERAL / Resident Statement MD/DO has reviewed & agrees with the documentation as recorded. Disposition/Present on Arrival - Present on Arrival Any Indicators Present on Arrival: No History of DVT/PE: No History of Uncontrolled Diabetes: No Urinary Catheter: No History of Decub. Ulcer: No History Surgical Site Infection Following: None - Disposition Have Diagnosis and Disposition been Completed?: Yes Diagnosis: Panic attack Disposition: HOME/ ROUTINE Disposition Time: 15:01 Patient Plan: Discharge Patient Problems: Current Active Problems Problem Status Onset Panic attack Acute Condition: IMPROVED Additional Instructions: -Discharge home with education on stay hydrated, bed rest, follow up with your own pmd within 2 days, return to the ER for any new or worsening signs or symptoms. Referrals: Sruthi Mendez MD [Primary Care Provider] - Follow up with primary [facility] at [facility] [place] [Outside] - Follow up with primary Forms: [employer]
[2017-05-09 14:58] VITALS: O2SAT 100
[2017-05-09 16:19] VITALS: BP 120/86; PULSE 90; RESP 20; TEMP 98.7
== END 2017-05-09 16:18 | disposition home or self-care (01) ==
LOC: ED 14:41
DX: F41.0 Panic disorder [episodic paroxysmal anxiety] (principal)

== ENCOUNTER 2017-11-01 19:34 | Emergency (ER) | payer MEDICAID ==
[2017-11-01 19:39] VITALS: BMI 19.5
[2017-11-01 19:47] VITALS: TEMP 98; O2SAT 100
--- NOTE | 2017-11-01 19:58 | ED PDOC ---
Arrival/HPI - General Chief Complaint: GI Problem Time Seen by Provider: 11/01/17 19:53 Historian: Patient - History of Present Illness Narrative History of Present Illness (Text): 11/01/17 19:53 A 47 year old female presents to the emergency department complaining of throat pain with difficulty swallowing. Patient reports she was eating a cracker and feels it is stuck in her throat. Patient has a surgical history of esophageal dilation performed by Dr. Haque 4 months ago. Patient was prescribed Protonix, Pentoprozole and antibiotics. She reports she has not been compliant with the medication. Patient is scheduled for an endoscopy on 11/06/17. Patient denies any fever, chills, nausea, vomiting, abdominal pain, chest pain, shortness of breath or any other complaints. Time/Duration: Prior to Arrival Past Medical History - Provider Review Nursing Documentation Reviewed: Yes - Past History Past History: No Previous - Infectious Disease Hx of Infectious Diseases: None - Tetanus Immunization Tetanus Immunization: Unknown - Cardiac Hx Pacemaker: No - Pulmonary Hx Asthma: Yes Hx Bronchitis: No - Neurological Hx Neurological Disorder: No - HEENT Hx HEENT Disorder: Yes (ESOPHAGEAL STRICTURE) - Renal Hx Renal Disorder: No - Endocrine/Metabolic Hx Endocrine Disorders: No - Hematological/Oncological Hx Anemia: Yes - Integumentary Hx Dermatological Disorder: No - Musculoskeletal/Rheumatological Hx Musculoskeletal Disorders: No - Gastrointestinal Hx Gastrointestinal Disorders: Yes (ESOPHAGEAL STRICTURE-WITH DILATATION UMDNJ) Hx Gastroesophageal Reflux: Yes Other/Comment: GASTRITIS - Genitourinary/Gynecological Hx Genitourinary Disorders: Yes (fibroids,C SECTION X 3,HYSTERECTOMY) - Psychiatric Hx Anxiety: Yes Hx Depression: No Hx Substance Use: No - Surgical History Hx Section: Yes Hx Hysterectomy: Yes Other/Comment: Esophagus surgery - Anesthesia Hx Anesthesia: Yes Hx Anesthesia Reactions: No Hx Malignant Hyperthermia: No - Suicidal Assessment Feels Threatened In Home Enviroment: No Family/Social History - Physician Review Nursing Documentation Reviewed: Yes Family/Social History: No Known Family HX Smoking Status: Never Smoked Hx Alcohol Use: No Hx Substance Use: No Hx Substance Use Treatment: No Allergies/Home Meds Allergies/Adverse Reactions: Allergies No Known Allergies Allergy (Verified 06/11/17 13:46) Home Medications: Home Meds Medication Instructions Recorded Confirmed Albuterol HFA [Ventolin HFA 90 0.09 mg IH PRN PRN 06/11/17 11/01/17 mcg/actuation (8 g)] Ondansetron [Zofran Odt] 8 mg PO Q8 06/11/17 11/01/17 Pantoprazole Sodium [Protonix] 40 mg PO DAILY 06/11/17 11/01/17 Ranitidine HCl [Ranitidine 150] 150 mg PO DAILY 06/11/17 11/01/17 Montelukast [Singulair] 10 mg PO DAILY 11/01/17 11/01/17 Sucralfate [Carafate Oral Susp] 10 ml PO QID 11/01/17 11/01/17 Review of Systems - Physician Review All systems were reviewed & negative as marked: Yes - Review of Systems Constitutional: absent: Fevers, Night Sweats ENT: Other (Throat pain with difficulty swallowing) Respiratory: absent: SOB Cardiovascular: absent: Chest Pain Gastrointestinal: absent: Abdominal Pain, Nausea, Vomiting Physical Exam Vital Signs Reviewed: Yes Vital Signs Temp Pulse Resp BP Pulse Ox 11/01/17 21:37 74 18 112/61 100 11/01/17 19:35 98 F 80 16 109/85 100 Temperature: Afebrile Blood Pressure: Normal Pulse: Regular Respiratory Rate: Normal Appearance: Positive for: Well-Appearing, Non-Toxic, Comfortable Pain Distress: None Mental Status: Positive for: Alert and Oriented X 3 - Systems Exam Head: Present: Atraumatic, Normocephalic Pupils: Present: PERRL Extroacular Muscles: Present: EOMI Conjunctiva: Present: Normal Mouth: Present: Moist Mucous Membranes. No: Drooling Pharnyx: Present: Normal. No: ERYTHEMA, EXUDATE, TONSILS ENLARGED Neck: Present: Normal Range of Motion Respiratory/Chest: Present: Clear to Auscultation, Good Air Exchange. No: Respiratory Distress, Accessory Muscle Use Cardiovascular: Present: Regular Rate and Rhythm, Normal S1, S2. No: Murmurs Abdomen: Present: Normal Bowel Sounds. No: Tenderness, Distention, Peritoneal Signs Back: Present: Normal Inspection Upper Extremity: Present: Normal Inspection. No: Cyanosis, Edema Lower Extremity: Present: Normal Inspection. No: Edema Neurological: Present: GCS=15, CN II-XII Intact, Speech Normal Skin: Present: Warm, Dry, Normal Color. No: Rashes Psychiatric: Present: Alert, Oriented x 3, Normal Insight, Normal Concentration Medical Decision Making ED Course and Treatment: 11/01/17 19:53 Impression: A 47 year old female with throat pain and difficulty swallowing Plan: -- Chest xray -- Abdomen xray -- Labs -- Urinalysis -- Reassess and disposition Progress Notes: 11/01/17 21:51: All of patient's exam results are normal. Patient is able to tolerate PO. Will discharge patient home as per Dr. Mendez's request. - Lab Interpretations Lab Results: 11/01/17 20:20 11/01/17 20:20 Lab Results 11/01/17 20:20: Sodium 141, Potassium 3.9, Chloride 104, Carbon Dioxide 24, Anion Gap 17, BUN 8, Creatinine 0.8, Est GFR ( Amer) > 60, Est GFR (Non- Af Amer) > 60, Random Glucose 108, Calcium 10.8 H, Total Bilirubin 0.4, AST 32, ALT 17, Alkaline Phosphatase 88, Total Protein 9.0 H, Albumin 4.5, Globulin 4.5 , Albumin/Globulin Ratio 1.0 L, Lipase 182 11/01/17 20:20: PT 10.4, INR 0.91 L 11/01/17 20:20: WBC 11.3 H D, RBC 4.98, Hgb 14.7, Hct 42.7, MCV 85.7, MCH 29.5, MCHC 34.4, RDW 13.2, Plt Count 309, MPV 9.3, Gran % 75.2 H, Lymph % (Auto) 18.6 L, [place] % (Auto) 4.5, Eos % (Auto) 1.5, Baso % (Auto) 0.2, Gran # 8.51 H, Lymph # (Auto) 2.1, [place] # (Auto) 0.5, Eos # (Auto) 0.2, Baso # (Auto) 0.02 I have reviewed the lab results: Yes - RAD Interpretation Radiology Orders: 11/01/17 19:58 CHEST TWO VIEWS (PA/LAT) [RAD] Stat ABD 2 VIEWS (FLAT/UP OR DECUB) [RAD] Stat - Medication Orders Current Medication Orders: Discontinued Medications Famotidine (Pepcid) 40 mg IVP STAT STA Stop: 11/01/17 20:03 Last Admin: 11/01/17 20:27 Dose: 40 mg IVP Administration Document 11/01/17 20:27 CNR (Rec: 11/01/17 20:27 [facility]NR [id number] Charges for Administration # of IVP Administrations 1 Sodium Chloride (Sodium Chloride 0.9%) 1,000 mls @ 999 mls/hr IV .Q1H1M STA Stop: 11/01/17 21:02 Last Admin: 11/01/17 20:26 Dose: 999 mls/hr eMAR Start Stop Document 11/01/17 20:26 CNR (Rec: 11/01/17 20:27 [facility]NR [id number] Intravenous Solution Start Date 11/01/17 Start Time 20:27 Pantoprazole Sodium (Protonix Inj) 40 mg IVP STAT STA Stop: 11/01/17 20:03 Last Admin: 11/01/17 20:27 Dose: 40 mg IVP Administration Document 11/01/17 20:27 CNR (Rec: 11/01/17 20:27 CNR [id number]) Charges for Administration # of IVP Administrations 1 - PA / SUSTAINABILITY OFFICER / Resident Statement MD/DO has reviewed & agrees with the documentation as recorded. Disposition/Present on Arrival - Present on Arrival Any Indicators Present on Arrival: No History of DVT/PE: No History of Uncontrolled Diabetes: No Urinary Catheter: No History of Decub. Ulcer: No History Surgical Site Infection Following: None - Disposition Have Diagnosis and Disposition been Completed?: Yes Diagnosis: Esophageal dysfunction Disposition: HOME/ ROUTINE Disposition Time: 22:03 Patient Plan: Discharge Condition: GOOD Discharge Instructions (ExitCare): Acid Reflux (Gastroesophageal Reflux Disease ), Adult (DC), Esophageal Stricture (DC) Referrals: Sruthi Mendez MD [Primary Care Provider] - Follow up with primary Forms: [email or web address] ([place]andan)
[2017-11-01] MEDS ORDERED: Sodium Chloride 0.9% 1,000 ML IV STA ×2 (20:02→22:16)
[2017-11-01 20:37] LABS: BASO # 0.02 K/mm3 (0.0-2.0); BASO % 0.2 % (0.0-3.0); EOS # 0.2 (0.0-0.7); EOS % 1.5 % (1.5-5.0); GRAN # 8.51 (1.4-6.5); GRAN % 75.2 % (50.0-68.0); HEMOGLOBIN 14.7 g/dL (12.0-16.0); LYMPH # 2.1 (1.2-3.4); LYMPH % 18.6 % (22.0-35.0); MEAN CELL VOLUME 85.7 fl (80.0-105.0); MEAN CORPUSCULAR HEMOGLOBIN 29.5 pg (25.0-35.0); MEAN CORPUSCULAR HGB CONC 34.4 g/dl (31.0-37.0); MEAN PLATELET VOLUME 9.3 fl (7.0-11.0); MONO # 0.5 (0.1-0.6); MONO % 4.5 % (1.0-6.0); RBC 4.98 10^6/uL (3.5-6.1); RED CELL DISTRIBUTION WIDTH 13.2 % (11.5-14.5); WHITE BLOOD COUNT 11.3 10^3/ul (4.5-11.0)
[2017-11-01 20:45] LABS: ALBUMIN 4.5 g/dL (3.0-4.8); ALT/SGPT 17 U/L (7-56); AST/SGOT 32 U/L (14-36); BLOOD UREA NITROGEN 8 mg/dL (7-21); CALCIUM 10.8 mg/dL (8.4-10.5); GFR AFRICAN-AMERICAN > 60; GFR NON-AFRICAN AMERICAN > 60; LIPASE 182 U/L (23-300)
[2017-11-01 20:57] LABS: INR 0.91 (0.93-1.08); PROTHROMBIN TIME 10.4 SECONDS (9.4-12.5)
[2017-11-01 21:38] VITALS: BP 112/61; PULSE 74; RESP 18
[2017-11-01 22:33] LABS: URINE BILIRUBIN NEGATIVE (NEGATIVE); URINE BLOOD NEGATIVE (NEGATIVE); URINE COLOR YELLOW (YELLOW); URINE GLUCOSE (UA) NEGATIVE (NEGATIVE); URINE LEUKOCYTE ESTERASE NEGATIVE Leu/uL (NEGATIVE); URINE PROTEIN NEGATIVE mg/dL (<30 mg/dL); URINE UROBILINOGEN 0.2 E.U./dL (<1 E.U./dL)
[2017-11-01 22:34] LABS: URINE APPEARANCE CLEAR (CLEAR)
--- NOTE | 2017-11-02 09:17 | RAD ---
HISTORY: Difficulty Swallowing / Abdominal Pain COMPARISON: 04/11/2017 TECHNIQUE: Chest PA and lateral FINDINGS: LUNGS: No active pulmonary disease. PLEURA: No significant pleural effusion identified. No pneumothorax apparent. CARDIOVASCULAR: Normal. OSSEOUS STRUCTURES: No significant abnormalities. VISUALIZED UPPER ABDOMEN: Normal. OTHER FINDINGS: None. IMPRESSION: No active disease.
--- NOTE | 2017-11-02 09:18 | RAD ---
HISTORY: Difficulty Swallowing / Abdominal Pain COMPARISON: No prior. FINDINGS: BOWEL: Normal. No obstruction. No free air. BONES: Normal. OTHER FINDINGS: None. IMPRESSION: No active disease.
== END 2017-11-01 23:38 | disposition home or self-care (01) ==
LOC: ED 19:34
DX: K22.8 Other specified diseases of esophagus (principal); D64.9 Anemia, unspecified
CPT/HCPCS: 71046; 74019; 80053; 81003; 83690; 85025; 85610; 96374; 96375; 99284; C9113; J7040

== ENCOUNTER 2018-01-22 09:17 | Day surgery (SDC) | payer MEDICAID ==
[2018-01-18 10:34] VITALS: BMI 19.9
[2018-01-22 10:12] VITALS: O2SAT 100
[2018-01-22] MEDS ORDERED: Midazolam 2 MG/2 ML VIAL ONE (10:32)
[2018-01-22] MEDS ORDERED: Propofol 10 mg/ml Inj (20 ML) ONE (10:32)
[2018-01-22] MEDS ORDERED: Sodium Chloride 0.9% 1,000 ML IV SCH (11:00)
[2018-01-22 12:37] VITALS: TEMP 98
[2018-01-22 12:40] VITALS: BP 99/57; PULSE 67; RESP 18
== END 2018-01-22 13:04 | disposition home or self-care (01) ==
LOC: ENDO 09:17
PROVIDERS: ATTEND Internal Medicine
DX: K22.2 Esophageal obstruction (principal); K29.70 Gastritis, unspecified, without bleeding; R13.10 Dysphagia, unspecified
CPT/HCPCS: 43249; J2250; J2405; J2704; J3010; J7030